=== PATIENT | female | born 1955 | race Caucasian/White ===

== ENCOUNTER 2017-08-20 13:39 | Emergency (ER) | payer OTHER, SELFPAY ==
[2017-08-20 14:46] VITALS: BP 154/70; PULSE 68; RESP 20; TEMP 36.2; O2SAT 97; BMI 26.2
[2017-08-20 14:55] LABS: UTC Strep Screen (Rapid) Negative (Negative)
--- NOTE | 2017-08-20 15:33 | HMH.EDUTC ---
[facility] [place] Clinical Impression: Acute pharyngitis Qualifiers: Pharyngitis/tonsillitis etiology: unspecified etiology Qualified Code(s): J02.9 - Acute pharyngitis, unspecified Eustachian tube dysfunction Qualifiers: Laterality: bilateral Qualified Code(s): H69.83 - Other specified disorders of Eustachian tube, bilateral Disposition: Home, Self-Care Condition on Discharge: Good Instructions: DI for Viral Pharyngitis, DI for Eustachian Tube Dysfunction-Adult Additional Instructions: * No sign of bacterial infection. Likely viral. Virus can take 7-14 days to run their course * Monitor Temp. Fever would not be expected so if occurs, follow up * Encourage fluids, water, gatorade, powerade, pedialyte if infant/toddler/child * warm salt water gargles * warm fluids * sore throat lozenges * sleep elevated * humidifier/vaporizer * start flonase 2 sprays each nostril daily but may take 2-3 days to notice improvement with it. * start an antihistamine like claritin, zyrtec, juju. You could do one with a decongestant in it if you would like. Just ask the pharmacist for it because behind the counter. As we discussed, the decongestant can elevate BP so be sure to stop medication if so and follow up. * * Your throat swab was sent for culture. Those results are typically sent to your primary care. Be sure to follow up in 2-3 days if no improvement so they can review those results and treat if necessary. If you don't have primary care, I recommend you get one but in the mean time, you will have to return to a walk in clinic. * Follow up IMMEDIATELY for new or worsening symptoms OR no noticeable improvement over the next 48-72 hours. 911 for difficulty breathing or swallowing Prescriptions: Fluticasone Propionate [Flonase 50mcg nasal spray 16gm] 2 spr NS DAILY #1 bottle Time of Disposition: 15:45 Medical Decision Making Vital Signs: 08/20/17 14:46 Temperature 97.2 F L Temperature Source Temporal Artery Scan Pulse Rate [Right Brachial] 68 Respiratory Rate 20 Blood Pressure [Right Arm] 154/70 Blood Pressure Mean [Right Arm] 98 Blood Pressure Source [Right Arm] Automatic Cuff Blood Pressure Position [Right Arm] Sitting 02 Sat by Pulse Oximetry 97 Oxygen Delivery Method Room Air - Lab Data Lab results reviewed: Yes: I reviewed the patient's lab results. Lab Results 08/20/17 14:45: Strep Scn Rapid Clinic Negative Orders (Tests/Meds): ORDERS Category Date Time Status Strep Screen Confirmation Stat Micro 08/20/17 14:45 Received - Juan Inquiry Pt receiving controlled substance: No [facility] [facility] [place] - General Stated complaint: sore throat ear ache Time Seen by Provider: 08/20/17 15:33 Mode of Arrival: Ambulatory Source of Information: Patient Limitations: No Limitations Description of Symptoms (Recalled from Triage Doc. by RN): SORE THROAT, EARACHE HEENT Symptoms (Recalled from RN notes): Yes (SORE THROAT, EARACHE) Resp Symptoms (Recalled from RN notes): No Skin Symptoms (Recalled from RN notes): No MS Symptoms (Recalled from RN notes): No Functional Status (Recalled from RN notes): N/A - History of Present Illness Provider Complaint: c/o sore throat and bilateral ear pain since Wednesday. Ear pain intermittent, described as popping, craqcking, pressure. Sore throat entire throat, constant, raw and irritated. Throat lozenges not helping. Worse with clearing throat. No known sick contacts. No fever. - Related Data Previous Rx's Medication Instructions Recorded esomeprazole magnesium 20 mg 20 mg PO QDAY #14 cap 07/14/17 capsule,delayed release Fluticasone Propionate [Flonase 2 spr NS DAILY #1 bottle 08/20/17 50mcg nasal spray 16gm] Allergies Allergy/AdvReac Type Severity Reaction Status Date / Time No Known Allergies Allergy Verified 08/20/17 14:50 - Worker's Comp Is this a Worker's Comp case?: No [facility] History I have reviewed the patient's past medical history: Yes Medical Histo
--- NOTE | 2017-08-20 15:42 | ED_ITS ---
[facility] [place] Clinical Impression: Acute pharyngitis Qualifiers: Pharyngitis/tonsillitis etiology: unspecified etiology Qualified Code(s): J02.9 - Acute pharyngitis, unspecified Eustachian tube dysfunction Qualifiers: Laterality: bilateral Qualified Code(s): H69.83 - Other specified disorders of Eustachian tube, bilateral Disposition: Home, Self-Care Condition on Discharge: Good Instructions: DI for Viral Pharyngitis, DI for Eustachian Tube Dysfunction- Adult Additional Instructions: * No sign of bacterial infection. Likely viral. Virus can take 7-14 days to run their course * Monitor Temp. Fever would not be expected so if occurs, follow up * Encourage fluids, water, gatorade, powerade, pedialyte if infant/toddler/ child * warm salt water gargles * warm fluids * sore throat lozenges * sleep elevated * humidifier/vaporizer * start flonase 2 sprays each nostril daily but may take 2-3 days to notice improvement with it. * start an antihistamine like claritin, zyrtec, juju. You could do one with a decongestant in it if you would like. Just ask the pharmacist for it because behind the counter. As we discussed, the decongestant can elevate BP so be sure to stop medication if so and follow up. * * Your throat swab was sent for culture. Those results are typically sent to your primary care. Be sure to follow up in 2-3 days if no improvement so they can review those results and treat if necessary. If you don't have primary care , I recommend you get one but in the mean time, you will have to return to a walk in clinic. * Follow up IMMEDIATELY for new or worsening symptoms OR no noticeable improvement over the next 48-72 hours. 911 for difficulty breathing or swallowing Prescriptions: Fluticasone Propionate [Flonase 50mcg nasal spray 16gm] 2 spr NS DAILY #1 bottle Time of Disposition: 15:45 Medical Decision Making Vital Signs: 08/20/17 14:46 Temperature 97.2 F L Temperature Source Temporal Artery Scan Pulse Rate [Right Brachial] 68 Respiratory Rate 20 Blood Pressure [Right Arm] 154/70 Blood Pressure Mean [Right Arm] 98 Blood Pressure Source [Right Arm] Automatic Cuff Blood Pressure Position [Right Arm] Sitting 02 Sat by Pulse Oximetry 97 Oxygen Delivery Method Room Air - Lab Data Lab results reviewed: Yes: I reviewed the patient's lab results. Lab Results 08/20/17 14:45: Strep Scn Rapid Clinic Negative Orders (Tests/Meds): ORDERS Category Date Time Status Strep Screen Confirmation Stat Micro 08/20/17 14:45 Received - Juan Inquiry Pt receiving controlled substance: No [facility] [place] HPI - General Stated complaint: sore throat ear ache Time Seen by Provider: 08/20/17 15:33 Mode of Arrival: Ambulatory Source of Information: Patient Limitations: No Limitations Description of Symptoms (Recalled from Triage Doc. by RN): SORE THROAT, EARACHE HEENT Symptoms (Recalled from RN notes): Yes (SORE THROAT, EARACHE) Resp Symptoms (Recalled from RN notes): No Skin Symptoms (Recalled from RN notes): No MS Symptoms (Recalled from RN notes): No Functional Status (Recalled from RN notes): N/A - History of Present Illness Provider Complaint: c/o sore throat and bilateral ear pain since Wednesday. Ear pain intermittent, described as popping, craqcking, pressure. Sore throat entire throat, constant, raw and irritated. Throat lozenges not helping. Worse with clearing throat. No known sick contacts. No fever.
[2017-08-20 15:57] VITALS: BP 154/70; PULSE 68; RESP 20; TEMP 36.2; O2SAT 97
== END 2017-08-20 15:58 | disposition home or self-care (01) ==
PROVIDERS: Emergency Provider Nurse Practitioner Family; Family Provider Emergency Medicine
DX: J02.9 Acute pharyngitis, unspecified (principal); H69.83 Other specified disorders of Eustachian tube, bilateral; I10 Essential (primary) hypertension; E03.9 Hypothyroidism, unspecified
CPT/HCPCS: 87880; 99202

== ENCOUNTER → 2018-03-21 14:07 | Outpatient (REF) | payer OTHER, SELFPAY ==
[2018-03-21 18:18] LABS: Basophils # 0.1 K/mm3 (0-0.2); Eosinophils # 0.2 K/mm3 (0.0-0.4); Hematocrit 40.2 % (37.0-47.0); Hemoglobin 13.8 g/dL (12.2-16.2); Lymphocytes # 2.1 K/mm3 (0.7-4.5); Lymphocytes % 35.1 K/mm3 (10-50); Mean Corpuscular HGB Conc 34.4 g/dL (31.8-35.4); Mean Corpuscular Hemoglobin 34.1 pg (27.0-31.2); Mean Corpuscular Volume 99.3 fl (81-99); Mean Platelet Volume 7.9 fl (7.4-10.4); Monocytes # 0.3 K/mm3 (0.1-1.0); Monocytes % 4.2 % (1.7-9.3); Neutrophils # 3.3 K/mm3 (1.8-7.8); Neutrophils % 55.7 % (37.0-80.0); Platelet Count 289 K/mm3 (142-424); Red Blood Count 4.05 M/mm3 (4.20-5.40); White Blood Count 5.9 K/mm3 (4.8-10.8)
[2018-03-21 18:37] LABS: Alanine Aminotransferase 15 U/L (12-78); Albumin Level 4.1 gm/dL (3.4-5.0); Albumin/Globulin Ratio 1.3 (1.1-1.8); Alkaline Phosphatase 77 U/L (46-116); Anion Gap 13.2 mEq/L (5-15); Bilirubin,Total 0.3 mg/dL (0.2-1.0); Blood Urea Nitrogen 15 mg/dL (7-18); Calcium 8.6 mg/dL (8.5-10.1); Carbon Dioxide 26 mmol/L (21.0-32.0); Chloride 108 mmol/L (98-107); Cholesterol 242 mg/dL (140-200); Creatinine,Serum 0.57 mg/dL (0.55-1.02); Estimated Glomerular Filt Rate 108 ml/min (>60); GFR (African American) 130 ML/MIN (>60); Globulin 3.2 gm/dl (1.3-3.2); Glucose 98 mg/dL (74-106); HDL Cholesterol 48 mg/dL (29-89); LDL Cholesterol 131 mg/dL (0-130); Sodium 143 mmol/L (136-145); Thyroid Stimulating Hormone 0.88 uIU/ml (0.358-3.740); Total Protein,Serum 7.3 gm/dL (6.4-8.2); Triglycerides 313 mg/dL (30-200); VLDL Cholesterol 63 mg/dL (0-40)
[2018-03-21 18:41] LABS: Potassium 4.2 mmoL/L (3.5-5.1)
[2018-03-21 18:42] LABS: Aspartate Amino Transferase 12 U/L (15-37)
[2018-03-25 18:26] LABS: Vitamin D 25 Hydroxy 27.6 ng/mL (30.0-100.0)
== END ==
LOC: LAB 14:07
PROVIDERS: PCP Nurse Practitioner Family; Visit Provider Nurse Practitioner Family
DX: R53.83 Other fatigue (principal); E03.9 Hypothyroidism, unspecified
CPT/HCPCS: 80053; 80061; 82652; 84443; 85025

== ENCOUNTER → 2018-04-12 10:07 | Outpatient (CLI) | payer OTHER, SELFPAY | PROVIDERS: PCP Nurse Practitioner Family; Visit Provider Surgery | DX: L72.9 Follicular cyst of the skin and subcutaneous tissue, unspecified (principal) | CPT/HCPCS: 93005 ==

== ENCOUNTER → 2018-05-24 19:55 | Outpatient (CLI) | payer OTHER, SELFPAY | PROVIDERS: Visit Provider Nurse Practitioner Family | DX: R31.9 Hematuria, unspecified (principal) | CPT/HCPCS: 87086; 87088; 87186 ==

== ENCOUNTER → 2018-06-20 16:44 | Outpatient (CLI) | payer OTHER, SELFPAY ==
--- NOTE | 2018-06-20 16:46 | MM_ITS ---
MM Dig screening mamm BI w/CAD ORDERING PHYSICIAN : Rico Kim MD PATIENT AGE: 62 years GENDER: Female COMPARISON: June 20172015, December INDICATION: ITS.REASON: Routine Screening Mammogram. No hormones. No new complaints. Previous excisional biopsy left breast. Biopsy scar superior areolar region 12:00 noted on history sheet. Family history. Unremarkable TECHNIQUE: Standard CC and MLO images were obtained. R2 CAD reviewed. FINDINGS: Mild to moderate residual fibroglandular elements. Throughout both breast. Prior films are helpful and supportive stable pattern CAD computer review highlights no areas of concern either RIGHT BREAST:. No new areas of significant concern. Minimal area of density at the lateral retroareolar region is unchanged since multiple prior studies dating back to 2013, 2011.,/2015 And can be followed. . LEFT BREAST:No simply new areas of concern. Unremarkable. IMPRESSION: Overall Stable mammogram, with no significant new areas of concern Bilateral follow-up one year recommended . BI-RADS Category: 2 Benign Finding(s) RECOMMENDED FOLLOW-UP: 1YR 1 YEAR FOLLOW-UP (A letter has been sent to the patient regarding results of the study.)
== END ==
PROVIDERS: PCP Emergency Medicine; Visit Provider Nurse Practitioner Obstetrics & Gynecology
DX: Z12.31 Encounter for screening mammogram for malignant neoplasm of breast (principal)
CPT/HCPCS: 77067

== ENCOUNTER → 2018-08-18 15:48 | Outpatient (CLI) | payer OTHER, SELFPAY ==
--- NOTE | 2018-08-18 15:56 | XR_ITS ---
XR KUB HISTORY: Right lower quadrant pain ITS.REASON: pain ORDERING PHYSICIAN: Ashli Serra PATIENT AGE: 62 years COMPARISON: None FINDINGS: Nonspecific nonobstructive bowel gas pattern. There is a calcific density to the right of L5 representing a phlebolith as noted on previous CT scan. Prominent sacroiliac ligament calcifications are noted. Mild osteoarthritic changes are present in the hips and the SI joints. IMPRESSION: No acute finding
== END ==
PROVIDERS: PCP Nurse Practitioner Family; Visit Provider Nurse Practitioner Family
DX: R10.9 Unspecified abdominal pain (principal)
CPT/HCPCS: 74018; 87086

== ENCOUNTER → 2018-08-26 14:15 | Outpatient (CLI) | payer OTHER, SELFPAY ==
--- NOTE | 2018-08-26 14:16 | CT_ITS ---
CT abdomen pelvis wo con CLINICAL INDICATION: Right flank pain, abdominal pain, mid abdominal pain ITS.REASON: r/o kidney stone ORDERING PHYSICIAN: Ashli Serra PATIENT AGE: 62 years COMPARISON: 08/08/2018 , 03/23/2014 , TECHNIQUE: Axial images obtained with sagittal and coronal reformats. All CT scans at the facility use one or more dose reduction, viz: automated exposure control, ma/kV adjustment per patient size (including targeted exams where dose is matched to indication, i.e. head), or iterative reconstruction technique. PROCEDURE: Oral Contrast: None IV Contrast: None . FINDINGS:, Lung bases are clear. The liver, spleen, adrenal glands, pancreas, and kidneys have an unremarkable unenhanced appearance. No renal or ureteral calculi. There are gallstones noted. No intestinal obstruction or free air. No evidence of appendicitis. Scattered diverticula and no evidence of diverticulitis. There is diverticula within the ascending colon region. There is a right midabdominal calcific density in the paraspinal region at the L4-L5 level and represents a phlebolith similar to the previous exam. Prior hysterectomy. No acute bony findings. IMPRESSION: 1. No acute abdominal or pelvic findings. No renal or ureteral calculi. 2. Cholelithiasis 3. Colonic diverticulosis. No evidence of diverticulitis
== END ==
PROVIDERS: PCP Nurse Practitioner Family; Visit Provider Nurse Practitioner Family
DX: R10.9 Unspecified abdominal pain (principal)
CPT/HCPCS: 74176

== ENCOUNTER → 2018-09-14 08:23 | Outpatient (CLI) | payer OTHER, SELFPAY ==
--- NOTE | 2018-09-14 08:24 | US_ITS ---
US gallbladder HISTORY: Nausea with right upper quadrant pain and back pain ITS.REASON: gallstones ORDERING PHYSICIAN: Brayan Stephens MD PATIENT AGE: 62 years Comparison: None FINDINGS: PANCREAS: Unremarkable. No obvious mass or abnormal fluid collection. No ductal dilatation LIVER: No focal liver lesions demonstrated. Homogeneous echogenicity. No intrahepatic biliary ductal dilatation evident RIGHT KIDNEY: Unremarkable. Normal size and echogenicity. No hydronephrosis GALLBLADDER: There are gallstones present. No gallbladder wall thickening, pericholecystic fluid, or biliary dilatation is evident. Common bile but measures 5 mm. IMPRESSION: Cholelithiasis
== END ==
PROVIDERS: PCP Emergency Medicine; Visit Provider Surgery
DX: K82.9 Disease of gallbladder, unspecified (principal)
CPT/HCPCS: 76705

== ENCOUNTER → 2018-09-26 14:59 | Outpatient (CLI) | payer OTHER, SELFPAY ==
[2018-09-26 15:27] LABS: Basophils # 0.1 K/mm3 (0-0.2); Eosinophils # 0.2 K/mm3 (0.0-0.4); Eosinophils % 3.2 % (0.1-12.0); Hematocrit 39.5 % (37.0-47.0); Hemoglobin 14.1 g/dL (12.2-16.2); Lymphocytes # 2.6 K/mm3 (0.7-4.5); Lymphocytes % 37.1 % (10-50); Mean Corpuscular HGB Conc 35.7 g/dL (31.8-35.4); Mean Corpuscular Hemoglobin 33.9 pg (27.0-31.2); Mean Platelet Volume 7.1 fl (7.4-10.4); Monocytes # 0.3 K/mm3 (0.1-1.0); Monocytes % 4.6 % (1.7-9.3); Neutrophils # 3.7 K/mm3 (1.8-7.8); Neutrophils % 54.1 % (37.0-80.0); Platelet Count 302 K/mm3 (142-424); Red Blood Count 4.16 M/mm3 (4.20-5.40); Red Cell Distribution Width 12.8 % (11.5-17.5); White Blood Count 6.9 K/mm3 (4.8-10.8)
[2018-09-26 17:26] LABS: Alanine Aminotransferase 16 U/L (12-78); Albumin Level 4.2 gm/dL (3.4-5.0); Albumin/Globulin Ratio 1.3 (1.1-1.8); Alkaline Phosphatase 70 U/L (46-116); Anion Gap 14.2 mEq/L (5-15); Aspartate Amino Transferase 15 U/L (15-37); Bilirubin,Total 0.4 mg/dL (0.2-1.0); Blood Urea Nitrogen 17 mg/dL (7-18); Calcium 9.2 mg/dL (8.5-10.1); Carbon Dioxide 28 mmol/L (21.0-32.0); Chloride 103 mmol/L (98-107); Creatinine,Serum 0.62 mg/dL (0.55-1.02); Estimated Glomerular Filt Rate 98 ml/min (>60); GFR (African American) 118 ML/MIN (>60); Globulin 3.2 gm/dl (1.3-3.2); Glucose 102 mg/dL (74-106); Potassium 4.2 mmoL/L (3.5-5.1); Sodium 141 mmol/L (136-145); Total Protein,Serum 7.4 gm/dL (6.4-8.2)
== END ==
PROVIDERS: Visit Provider Surgery
DX: K80.20 Calculus of gallbladder without cholecystitis without obstruction (principal)
CPT/HCPCS: 36415; 80053; 85025

== ENCOUNTER 2018-12-06 08:37 | Day surgery (SDC) | payer OTHER, SELFPAY ==
[2018-12-05 12:51] VITALS: BMI 27.8
[2018-12-06] VITALS (8 sets, daily range): BP systolic 112–142; BP diastolic 69–82; PULSE 62–82; RESP 16–18; TEMP 36.4–37; O2SAT 94–99
--- NOTE | 2018-12-06 09:31 | HMH.ANESCL ---
[facility] Anesthesia Checklist - Patient Identification Patient Identification: Arm Band, Verbal (Name & ) - Structural Data Admitted From: Home Planned Operative Procedure/s: EGD Consent for Planned Operative Procedure(s) Verified: Yes Verified Documents: Surgical Consent, History and Physical - NPO Status Verified Time NPO: 00:00 - Additional verifications Patient : No Anesthesia Reactions: No - Airway Assessment C-Spine Mobility Assessed: Yes TMJ Mobility Assessed: Yes Dentition: Poor Dentition (Missing teeth) - Neurological Assessment Level of Consciousness: Awake, Alert, Appropriate, Follows Commands Hx Seizures: No Numbness or tingling in extremities: No - Anesthesia Plan Anesthesia Risk discussed: Yes Anesthesia Plan: Verified ASA Class: II Anesthesia Type: MAC [facility] History I have reviewed the patient's past medical history: Yes Medical History: Reports:: Depression, Gastroesophageal Reflux Disease(GERD), Hyperlipidemia, Hypertension Denies:: Cancer, Diabetes Mellitus Type 1, Diabetes Mellitus Type 2, Internal Pacemaker, Lung Disease, MRSA, Seizures *Have you ever received a pneumonia vaccine?: No *Have you received a flu vaccine this season?: Yes Other Medical History: Reports: Hypothyroidism. Denies: Blood Transfusion Reaction Laterality Cases: Other Surgeries: Yes: Cholecystectomy, Hysterectomy-Total, Other. No: Pacemaker Amputation: No Fractures: No - *Social History Smoking Status: Never smoker Alcohol Intake: never Alcohol Intake Frequency:: holidays/special occasions only Substance Use Type: denies use *Occupational Status:: employed Housing: house Household Members: none *Travel in the last 8 weeks: None (NA) - Psychiatric History Pschychiatric History:: Reports:: Depression Family Hx:: Diabetes, Kidney Disease
--- NOTE | 2018-12-06 09:56 | HMH.SCOPE ---
- Procedure: Date: 12/06/18 Procedure Performed:: Esophagogastroduodenoscopy with biopsies Indications:: Patient is a 62-year-old white female. I had seen her for symptomatic gallstones and performed laparoscopic cholecystectomy on her relatively recently. When she returned for postoperative evaluation she stated that her abdominal pain had improved but she was having symptoms consistent with dyspepsia and heartburn. At that time I started her on ranitidine. She is been taking this twice daily. She states that this is given her minor relief. She describes ongoing symptoms of heartburn and dyspepsia with some minor dysphagia type symptoms. Plan was made for upper endoscopy. Performing Provider:: Brayan Stephens MD Referring Provider:: None Sedation:: Propofol Procedure:: Consent was obtained and patient was taken to endoscopy procedure room. She was positioned in a lateral decubitus position. Adequate intravenous sedation was achieved. Olympus endoscope was inserted via the oropharynx and advanced to the esophagus. Esophagus showed findings of mild chronic nonerosive esophagitis. At the gastroesophageal junction there was possibly evidence of some Latif's. Stomach was cannulated and insufflated. Retroflexion revealed no evidence of any appreciable hiatal hernia. Within the gastric lumen there is diffuse areas of punctate erosions. CLOtest was obtained for H. pylori. Pylorus was traversed. There is mild nonerosive duodenitis and biopsies were obtained. Several biopsies were obtained within the gastric lumen. Biopsies were obtained at the gastroesophageal junction to rule out Latif's. Several distal esophageal biopsies were obtained. Findings:: Punctate erosive gastritis Mild nonerosive duodenitis Recommendations:: Plan to follow-up on histopathology. Treat H. pylori if positive. If positive for metaplasia will need ongoing surveillance and regardless likely will need proton pump inhibitors. Complications:: None Estimated blood obtained (mL): 3
== END 2018-12-06 11:10 | disposition home or self-care (01) ==
LOC: OUTP 08:39
PROVIDERS: PCP Emergency Medicine; Visit Provider Surgery
PROC: 0DJ08ZZ Inspection of Upper Intestinal Tract, Via Natural or Artificial Opening Endoscopic (ICD-10-PCS; CPT 43235; principal; 2018-12-06 09:30)
DX: K20.8 Other esophagitis (principal); K25.5 Chronic or unspecified gastric ulcer with perforation; K29.80 Duodenitis without bleeding
CPT/HCPCS: 43239; 87339

== ENCOUNTER → 2019-03-14 17:56 | Outpatient (CLI) | payer OTHER, SELFPAY ==
[2019-03-14 18:53] LABS: Chol/HDL Ratio 4.6 (1-3.5); Cholesterol 227 mg/dL (140-200); HDL Cholesterol 49 mg/dL (29-89); LDL Cholesterol 116 mg/dL (0-130); T4 (Thyroxine) 8.8 ug/dl (4.7-13.3); Thyroid Stimulating Hormone 2.71 uIU/ml (0.358-3.740); Triglycerides 310 mg/dL (30-200); VLDL Cholesterol 62 mg/dL (0-40)
[2019-03-16 07:20] LABS: Vitamin D 25 Hydroxy 24.2 ng/mL (30.0-100.0)
== END ==
PROVIDERS: Visit Provider Nurse Practitioner Family
DX: E07.9 Disorder of thyroid, unspecified (principal); I10 Essential (primary) hypertension
CPT/HCPCS: 80061; 82652; 84436; 84443

== ENCOUNTER → 2019-06-09 16:39 | Outpatient (CLI) | payer OTHER, SELFPAY | PROVIDERS: Visit Provider Nurse Practitioner Family | DX: N39.0 Urinary tract infection, site not specified (principal) | CPT/HCPCS: 87086 ==

== ENCOUNTER → 2019-06-26 15:49 | Outpatient (CLI) | payer OTHER, SELFPAY ==
--- NOTE | 2019-06-26 15:49 | MM_ITS ---
PROCEDURE: MM DIG SCREENING MAMM BI W/CAD Patient Age:63Y CLINICAL INDICATION: Routine screening mammogram 63-year-old. No hormones but no new complaints. Noncontributory family history Prior excisional biopsy left breast scar at superior periareolar region Family history. Unremarkable COMPARISON: [facility] DIGITAL MAMM-SCREEN BILATERAL from 12/25/2010 [facility] DIGITAL MAMM-SCREEN BILATERAL from 02/18/2012 [facility] DIG MAMM-SCREEN CHUCKIE from 11/06/2013 [facility] DIG MAMM-SCREEN CHUCKIE from 12/04/2014 [facility] DIG MAMM-SCREEN CHUCKIE from 06/15/2016 [facility] DIG MAMM-SCREEN CHUCKIE W/CAD from 06/21/2017 [facility] MM Dig screening mamm BI w/CAD from 06/20/2018 TECHNIQUE: Standard CC and MLO images were obtained. R2 CAD reviewed. Additional CC view right breast included FINDINGS: [id number] residual fibroglandular elements bilaterally. Multiple prior studies are helpful in supporting stability with no new areas of significant concern either breast. No dominant or suspicious mass, no suspicious calcifications either breast. Overall stable architecture, with stable minor asymmetry Right breast: No new areas concern Stable minor area of density lateral superior retroareolar region again evident Left breast with no new findings Bilateral follow-up 1 year recommended IMPRESSION: stable bilateral mammogram. No significant new areas Of concern Bilateral follow-up 1 year [id number] density breast BI-RAD Category: 2 Benign Finding(s) FOLLOW-UP: 1YR 1 Year Follow-up additional axillary CC view on right and (A letter has been sent to the patient regarding results of the study.) Dictated by: Thom Carmichael MD 06/29/2019 08:55 Electronically signed by Thom Carmichael MD in [place] 06/29/2019 08:55
== END ==
PROVIDERS: PCP Emergency Medicine; Visit Provider Emergency Medicine
DX: Z12.31 Encounter for screening mammogram for malignant neoplasm of breast (principal)
CPT/HCPCS: 77067

== ENCOUNTER → 2020-03-12 17:11 | Outpatient (CLI) | payer OTHER, SELFPAY ==
[2020-03-12 17:58] LABS: Basophils # 0.1 K/mm3 (0-0.2); Eosinophils # 0.1 K/mm3 (0.0-0.4); Eosinophils % 2.2 % (0.1-12.0); Hematocrit 37.6 % (37.0-47.0); Hemoglobin 14.1 g/dL (12.2-16.2); Lymphocytes # 1.9 K/mm3 (0.7-4.5); Lymphocytes % 31.1 % (10-50); Mean Corpuscular HGB Conc 37.5 g/dL (31.8-35.4); Mean Corpuscular Hemoglobin 36.1 pg (27.0-31.2); Mean Corpuscular Volume 96.2 fl (81-99); Mean Platelet Volume 8.1 fl (7.4-10.4); Monocytes # 0.3 K/mm3 (0.1-1.0); Monocytes % 4.1 % (1.7-9.3); Neutrophils # 3.8 K/mm3 (1.8-7.8); Neutrophils % 61.6 % (37.0-80.0); Platelet Count 289 K/mm3 (142-424); Red Blood Count 3.91 M/mm3 (4.20-5.40); Red Cell Distribution Width 13.4 % (11.5-17.5); White Blood Count 6.2 K/mm3 (4.8-10.8)
[2020-03-12 18:03] LABS: Alanine Aminotransferase 15 U/L (12-78); Albumin Level 4.4 g/dl (3.5-5.0); Albumin/Globulin Ratio 1.6 (1.1-1.8); Alkaline Phosphatase 79 U/L (38-126); Anion Gap 13.7 mEq/L (5-15); Aspartate Amino Transferase 29 U/L (14-36); Bilirubin,Total 0.4 mg/dl (0.2-1.3); Blood Urea Nitrogen 17 mg/dl (7-17); Calcium 9.5 mg/dl (8.4-10.2); Carbon Dioxide 27 mmol/L (22.0-30.0); Chloride 102 mmol/L (98-107); Chol/HDL Ratio 5.5 (1-3.5); Cholesterol 268 mg/dl (140-200); Estimated Glomerular Filt Rate 101 ml/min (>60); GFR (African American) 122 ML/MIN (>60); Globulin 2.8 g/dL (1.3-3.2); Glucose 120 mg/dl (74-100); HDL Cholesterol 49 mg/dl (40-60); Potassium 3.7 mmoL/L (3.5-5.1); Sodium 139 mmol/L (136-145); Total Protein,Serum 7.2 g/dl (6.3-8.2)
[2020-03-12 18:06] LABS: Triglycerides 433 mg/dl (30-150)
[2020-03-12 18:14] LABS: Direct LDL Cholesterol 163.98 mg/dL (100-129)
[2020-03-12 18:19] LABS: 25-OH Vitamin D, Total 32.9 ng/mL (30-100)
[2020-03-12 18:20] LABS: Free T4 (Free Thyroxine) 0.93 ng/dl (0.78-2.19)
[2020-03-12 18:34] LABS: Thyroid Stimulating Hormone 1.47 uIU/mL (0.465-4.68)
[2020-03-14 12:47] LABS: Hemoglobin A1C 5.3 % (4.0-6.0)
== END ==
PROVIDERS: Visit Provider Physician Assistant
DX: R53.83 Other fatigue (principal); E78.00 Pure hypercholesterolemia, unspecified; R39.9 Unspecified symptoms and signs involving the genitourinary system; R73.9 Hyperglycemia, unspecified
CPT/HCPCS: 80053; 80061; 82306; 83036; 84439; 84443; 85025; 87086

== ENCOUNTER → 2020-03-25 14:20 | Outpatient (CLI) | payer OTHER, SELFPAY ==
--- NOTE | 2020-03-25 14:25 | CT_ITS ---
PROCEDURE: CT ABDOMEN PELVIS WO CON CLINICAL INDICATION: RLQ PAIN Right lower quadrant pain, right flank pain COMPARISON: CT ABDPELWO CT abdomen pelvis wo con from 08/26/2018 TECHNIQUE: Axial images obtained with sagittal and coronal reformats. All CT scans at the facility use one or more dose reduction, viz: automated exposure control, ma/kV adjustment per patient size (including targeted exams where dose is matched to indication, i.e. head), or iterative reconstruction technique. FINDINGS: LOWER THORAX: No acute finding ABDOMEN & PELVIS: The liver, spleen, adrenal glands, pancreas, and kidneys have an unremarkable unenhanced appearance. There has been a prior cholecystectomy. No renal or ureteral calculi. There phleboliths along the right gonadal vein region. No evidence of appendicitis. There are scattered colonic diverticula throughout the colon. No evidence of appendicitis. No intestinal obstruction or free air. Prior hysterectomy. No acute bony findings. IMPRESSION: 1. No acute abdominal or pelvic findings. 2. No evidence of appendicitis or obstructing ureteral calculus. 3. Colonic diverticulosis without evidence of diverticulitis Dictated by: Neel Riojas MD 03/25/2020 15:16 Neel Riojas MD in [place] 03/25/2020 15:16
== END ==
PROVIDERS: PCP Emergency Medicine; Visit Provider Urology
DX: R10.31 Right lower quadrant pain (principal)
CPT/HCPCS: 74176

== ENCOUNTER 2020-04-01 08:18 | Day surgery (SDC) | payer OTHER, SELFPAY ==
[2020-04-01 08:46] VITALS: BP 181/78; PULSE 56; RESP 18; TEMP 36.3; O2SAT 97; BMI 28.1
[2020-04-01 10:18] LABS: Coronavirus 19 IgG Antibody Negative (Negative); Coronavirus 19 IgM Antibody Negative (Negative)
--- NOTE | 2020-04-01 11:38 | P.OP_ITS ---
Date of procedure: 04/01/20 Pre-op Diagnosis:: Microhematuria Post-op Diagnosis:: Microhematuria Procedure performed:: Cystoscopy Surgeon:: Trent Stephen MD Anesthesia: local Estimated blood loss (mL): 0 Clinical Note:: 64-year-old white female with microscopic hematuria. She has elected to proceed with hematuria work-up. CT scan showed no evidence for the microscopic hem aturia and she presents for cystoscopy. Operative findings:: Bladder showed no evidence of abnormalities. Operative note:: Patient taken to the treatment room after informed consent. On the stretcher she was placed in the frog-leg position and prepped and draped in the standard surgical fashion. 2% lidocaine placed into the urethra and allowed to stand for 5 minutes. After 5 minutes the flexible cystoscope introduced into the urethral meatus. Passed into the bladder without difficulty and the bladder examined in a systematic fashion. There is no evidence of mucosal abnormalities, stones, trabeculation or cellule formation. The ureteral orifices in their normal anatomic position and clear efflux of urine was noted from each. Bladder neck and urethra were within normal limits as well. The scope removed. Patient tolerated well and we discussed the negative findings. Condition: stable Disposition: same day Specimens:: None Complications:: None
[2020-04-01 13:32] VITALS: BP 151/73; PULSE 53; RESP 14; TEMP 36.1; O2SAT 99
== END 2020-04-01 10:55 | disposition home or self-care (01) ==
LOC: OUTP 08:19
PROVIDERS: PCP Emergency Medicine; Visit Provider Urology
PROC: (CPT 52000; principal; 2020-04-01 09:00)
DX: R31.29 Other microscopic hematuria (principal); Z79.899 Other long term (current) drug therapy; K21.9 Gastro-esophageal reflux disease without esophagitis; I10 Essential (primary) hypertension; E78.5 Hyperlipidemia, unspecified; F32.9 Major depressive disorder, single episode, unspecified; Z83.3 Family history of diabetes mellitus; Z84.1 Family history of disorders of kidney and ureter
CPT/HCPCS: 52000; 86328

== ENCOUNTER → 2020-07-01 08:58 | Outpatient (CLI) | payer OTHER, SELFPAY ==
--- NOTE | 2020-07-01 08:59 | MM_ITS ---
PROCEDURE: MM DIG SCREENING MAMM BI W/CAD Referring Doctor: Rico Kim Patient Age:64Y CLINICAL INDICATION: Routine Screening Mammogram The the the COMPARISON: MG [facility] DIGITAL MAMM-SCREEN BILATERAL from 02/18/2012 MG [facility] DIG MAMM-SCREEN CHUCKIE from 11/06/2013 MG [facility] DIG MAMM-SCREEN CHUCKIE from 12/04/2014 MG [facility] DIG MAMM-SCREEN CHUCKIE from 06/15/2016 MG [facility] DIG MAMM-SCREEN CHUCKIE W/CAD from 06/21/2017 [facility] MM Dig screening mamm BI w/CAD from 06/20/2018 MG MM DIG SCREENING MAMM BI W/CAD from 06/26/2019 TECHNIQUE: Standard CC and MLO images were obtained. R2 CAD reviewed. Bilateral digital breast tomosynthesis included. Additional axillary CC view right breast FINDINGS: Moderate residual fibroglandular elements with stable minimal asymmetry. Stable architecture bilaterally with no new dominant nor suspicious mass; no new suspicious calcifications bilateral follow-up 1 year recommended Left breast, stable. Areas of minor asymmetry on today's CC view features are unchanged since studies dating back to 2014 the head IMPRESSION: Stable bilateral mammogram. No new areas of concern . Bilateral follow-up 1 year recommended BI-RAD Category: 1 Negative FOLLOW-UP: 1YR 1 Year Follow-up (A letter has been sent to the patient regarding results of the study.) Dictated by: Thom Carmichael MD 07/03/2020 07:25 Thom Carmichael MD in [place] 07/03/2020 07:25
== END ==
PROVIDERS: PCP Emergency Medicine; Visit Provider Nurse Practitioner Obstetrics & Gynecology
DX: Z12.31 Encounter for screening mammogram for malignant neoplasm of breast (principal)
CPT/HCPCS: 77063; 77067

== ENCOUNTER → 2020-12-16 15:59 | Outpatient (CLI) | payer OTHER, SELFPAY ==
--- NOTE | 2020-12-16 16:03 | XR_ITS ---
PROCEDURE: XR FOOT RT MIN 3V CLINICAL INDICATION: right knee pain COMPARISON: No exams were available for comparison FINDINGS: There are moderate degenerative changes of the medial joint compartment and patellofemoral joint with mild degenerative change of the lateral joint compartment. Small joint effusion. No acute fracture or dislocation. Some soft tissue swelling is present. 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 No acute fracture or dislocation. Dictated by: Boni May 12/17/2020 10:36 Boni May in [place] 12/17/2020 10:36
== END ==
PROVIDERS: PCP Emergency Medicine; Visit Provider Physician Assistant
DX: M25.561 Pain in right knee (principal)
CPT/HCPCS: 73630

== ENCOUNTER 2020-12-23 16:47 | Outpatient (RCR) | payer OTHER, SELFPAY ==
--- NOTE | 2020-12-23 17:36 | HMH.PTOPEV ---
PT Outpatient Evaluation Rehab PT Outpatient Evaluation Start: 12/23/20 17:02 Freq: Status: Active Protocol: Document 12/23/20 17:28 SILVIACARLOS (Rec: 12/23/20 17:36 ERROL [id number]) Electronically Signed By Gonsalo Jenkins, PT 12/23/20 17:28 Outpatient Therapy Subjective History Subjective History This is the initial Physical Therapy evaluation for Noelle Boyer. Pt is a 65 y/ o female referred to PT for c/ o R knee pain. Pt reports she has knee pain for a while , and states her knee gives out on her. When asked for clarification pt reports ~1 month of pain w/ insidious onset. Pt reports she will get intermittant sharp stabbing pain in knee causing it to buckle. Pt reports only pain when she is up on it Chief Complaint Pain,Gives out/Unstable Symptom Type Sharp Symptoms Relieved By Rest/Positioning,Heat Symptoms Aggravated By Physical Activity,Twisting, Walking Prior Functional Limitations None Current Functional Limitations Housework,Standing,Squatting, Recreation Activity,Walking, Stairs Symptom Description Intermittent Level of pain today (0-10) 0 Pain scale - at its best (0-10) 0 Pain scale - at its worst (0-10) 10 Hip/Knee Eval Gait Observation General Gait Pattern Observation Antalgic Gait Assistive Device Assistive Devices None / NA Palpation Tenderness right Knee Palpation Finding Tenderness,Trigger Point, Muscle Guarding MMT Knee Strength Reason Not Measured WFL Knee Extension Strength Grade 5 Normal Knee Flexion Strength Grade 5 Normal ROM bilateral Hip ROM Reason Not Measured Within Functional Limits Knee ROM Reason Not Measured Within Functional Limits Special Tests Knee Apprehension Test Negative Right Knee Apley Compression Test Negative Right Knee Anterior Drawer Test Negative Right Knee Medial-Lateral Grind Test Negative Right Knee Anterior Dwight Test Negative Right Knee Valgus Stress Test Negative Right Knee Varus Stress Test Negative Right Knee Mich Test Negative Right Patella Apprehension Test Negative Right Patellar Grind Test Positive Right Patellar Compression Test Positive Right Outpatient Therapy Assessment Im
== END 2020-12-23 16:50 | disposition home or self-care (01) ==
LOC: PT 16:47
PROVIDERS: PCP Emergency Medicine; Visit Provider Physician Assistant
DX: M25.561 Pain in right knee (principal)
CPT/HCPCS: 97163

== ENCOUNTER → 2021-08-27 15:30 | Outpatient (CLI) | payer OTHER, SELFPAY ==
--- NOTE | 2021-08-27 15:30 | MM_ITS ---
PROCEDURE INFORMATION: Exam: MG Bilateral Screening 3D Mammography Exam date and time: 08/27/2021 3:30 PM Age: 65 years old Clinical indication: Screening mammogram TECHNIQUE: Imaging protocol: Bilateral Screening tomosynthesis and 2D mammography including computer-aided detection (CAD) when performed. COMPARISON: 1. MG MM DIG SCREENING MAMM BI W/CAD 07/01/2020 9:13 AM 2. MG MM DIG SCREENING MAMM BI W/CAD 06/26/2019 4:37 PM 3. MG SCBI MM Dig screening mamm BI w/CAD 06/20/2018 5:07 PM 4. MG DMSB DIG MAMM-SCREEN CHUCKIE W/CAD 06/21/2017 4:03 PM FINDINGS: MAMMOGRAPHY: Breast composition: There are scattered areas of fibroglandular density. Mass: None. Architectural distortion: No new or suspicious architectural distortion. Calcifications: No new or suspicious calcifications are present Asymmetric density: No new or suspicious asymmetric density is present Skin thickening: None. Axillary adenopathy: None. IMPRESSION: No mammographic evidence of malignancy. Recommend annual screening mammography unless otherwise clinically indicated. ASSESSMENT: BI-RADS category 1: Negative
== END ==
PROVIDERS: PCP Emergency Medicine; Visit Provider Nurse Practitioner Obstetrics & Gynecology
DX: Z12.31 Encounter for screening mammogram for malignant neoplasm of breast (principal)
CPT/HCPCS: 77063; 77067

== ENCOUNTER → 2021-09-09 06:50 | Outpatient (CLI) | payer OTHER, SELFPAY ==
[2021-09-09 07:57] LABS: Basophils # 0.1 K/mm3 (0-0.2); Basophils % 1.5 % (0.1-2.0); Eosinophils # 0.2 K/mm3 (0.0-0.4); Eosinophils % 3.3 % (0.1-12.0); Hematocrit 47.1 % (37.0-47.0); Hemoglobin 15.3 g/dL (12.2-16.2); Lymphocytes # 1.3 K/mm3 (0.7-4.5); Lymphocytes % 18.7 % (10-50); Mean Corpuscular HGB Conc 32.5 g/dL (31.8-35.4); Mean Corpuscular Hemoglobin 34.5 pg (27.0-31.2); Mean Corpuscular Volume 106.1 fl (81-99); Mean Platelet Volume 7.7 fl (7.4-10.4); Monocytes # 0.3 K/mm3 (0.1-1.0); Monocytes % 4.9 % (1.7-9.3); Neutrophils # 5.1 K/mm3 (1.8-7.8); Neutrophils % 71.6 % (37.0-80.0); Platelet Count 332 K/mm3 (142-424); Red Blood Count 4.44 M/mm3 (4.20-5.40); Red Cell Distribution Width 13.3 % (11.5-17.5); White Blood Count 7.1 K/mm3 (4.8-10.8)
[2021-09-09 08:19] LABS: Alanine Aminotransferase 19 U/L (12-78); Albumin/Globulin Ratio 1.8 (1.1-1.8); Alkaline Phosphatase 59 U/L (38-126); Anion Gap 17.3 mEq/L (5-15); Aspartate Amino Transferase 32 U/L (14-36); Bilirubin,Total 0.8 mg/dl (0.2-1.3); Blood Urea Nitrogen 18 mg/dl (7-17); Calcium 9.7 mg/dl (8.4-10.2); Carbon Dioxide 25 mmol/L (22.0-30.0); Chloride 101 mmol/L (98-107); Chol/HDL Ratio 4.5 (1-3.5); Cholesterol 248 mg/dl (140-200); Estimated Glomerular Filt Rate 72 ml/min (>60); GFR (African American) 87 ML/MIN (>60); Globulin 2.8 g/dL (1.3-3.2); Glucose 120 mg/dl (74-100); HDL Cholesterol 55 mg/dl (40-60); Potassium 5.3 mmoL/L (3.5-5.1); Sodium 138 mmol/L (136-145); Total Protein,Serum 7.8 g/dl (6.3-8.2); Triglycerides 172 mg/dl (30-150); VLDL Cholesterol 34 mg/dL (0-40)
[2021-09-09 08:29] LABS: Direct LDL Cholesterol 149.94 mg/dL (100-129)
[2021-09-09 08:34] LABS: 25-OH Vitamin D, Total 45.4 ng/mL (30-100)
[2021-09-09 08:35] LABS: T4 (Thyroxine) 8.1 ug/dl (5.53-11.0)
[2021-09-09 08:49] LABS: Thyroid Stimulating Hormone 8.39 uIU/mL (0.465-4.68)
== END ==
PROVIDERS: Visit Provider Nurse Practitioner Family
DX: I10 Essential (primary) hypertension (principal); E03.9 Hypothyroidism, unspecified; E78.5 Hyperlipidemia, unspecified; E66.3 Overweight; Z68.28 Body mass index [BMI] 28.0-28.9, adult; R79.1 Abnormal coagulation profile
CPT/HCPCS: 36415; 80053; 80061; 82306; 83036; 84436; 84443; 85025

== ENCOUNTER → 2022-03-02 06:04 | Outpatient (CLI) | payer OTHER, SELFPAY ==
[2022-03-02 18:58] LABS: Alanine Aminotransferase 24 U/L (12-78); Albumin Level 4.3 g/dl (3.5-5.0); Albumin/Globulin Ratio 1.6 (1.1-1.8); Alkaline Phosphatase 78 U/L (38-126); Anion Gap 13.6 mEq/L (5-15); Aspartate Amino Transferase 34 U/L (14-36); Bilirubin,Total 0.2 mg/dl (0.2-1.3); Blood Urea Nitrogen 20 mg/dl (7-17); Calcium 9.6 mg/dl (8.4-10.2); Carbon Dioxide 23 mmol/L (22.0-30.0); Chloride 107 mmol/L (98-107); Chol/HDL Ratio 5.8 (1-3.5); Cholesterol 255 mg/dl (140-200); Estimated Glomerular Filt Rate 72 ml/min (>60); GFR (African American) 87 ML/MIN (>60); Globulin 2.7 g/dL (1.3-3.2); Glucose 126 mg/dl (74-100); HDL Cholesterol 44 mg/dl (40-60); Potassium 3.6 mmoL/L (3.5-5.1); Sodium 140 mmol/L (136-145)
[2022-03-02 18:59] LABS: Basophils # 0.1 K/mm3 (0-0.2); Basophils % 0.8 % (0.1-2.0); Eosinophils # 0.2 K/mm3 (0.0-0.4); Eosinophils % 2.9 % (0.1-12.0); Hematocrit 39.4 % (37.0-47.0); Hemoglobin 13.2 g/dL (12.2-16.2); Lymphocytes # 1.7 K/mm3 (0.7-4.5); Lymphocytes % 26.1 % (10-50); Mean Corpuscular HGB Conc 33.6 g/dL (31.8-35.4); Mean Corpuscular Hemoglobin 33.1 pg (27.0-31.2); Mean Corpuscular Volume 98.6 fl (81-99); Mean Platelet Volume 7.9 fl (7.4-10.4); Monocytes # 0.4 K/mm3 (0.1-1.0); Monocytes % 6.1 % (1.7-9.3); Neutrophils # 4.1 K/mm3 (1.8-7.8); Neutrophils % 64.1 % (37.0-80.0); Platelet Count 299 K/mm3 (142-424); Red Cell Distribution Width 12.7 % (11.5-17.5); White Blood Count 6.4 K/mm3 (4.8-10.8)
[2022-03-02 19:19] LABS: 25-OH Vitamin D, Total 43.4 ng/mL (30-100)
[2022-03-02 19:22] LABS: Triglycerides 455 mg/dl (30-150)
[2022-03-02 19:28] LABS: Thyroid Stimulating Hormone 1.48 uIU/mL (0.465-4.68)
[2022-03-02 19:48] LABS: Vitamin B12 640 pg/mL (239-931)
[2022-03-03 12:57] LABS: Hemoglobin A1C 5.1 % (4.0-6.0)
[2022-03-04 09:47] LABS: Direct LDL Cholesterol 135 mg/dL (100-129)
== END ==
PROVIDERS: PCP Physician Assistant; Visit Provider Physician Assistant
DX: R73.09 Other abnormal glucose (principal); E03.9 Hypothyroidism, unspecified; R82.90 Unspecified abnormal findings in urine; R53.83 Other fatigue
CPT/HCPCS: 80053; 80061; 82306; 82607; 83036; 84443; 85025; 87086; 87088; 87186

== ENCOUNTER → 2022-03-20 07:39 | Outpatient (CLI) | payer OTHER, SELFPAY ==
--- NOTE | 2022-03-20 07:40 | FL_ITS ---
FINAL REPORT CLINICAL HISTORY: . dysphagia 1:23 fluoro time FINDINGS: ESOPHAGRAM HISTORY: . Dysphagia PROCEDURE: The patient ingested barium. Effervescent crystals were also administered. Spot and overhead films were obtained. Fluoroscopy time: 1 minute 23 seconds. 12 radiographs were obtained. FINDINGS: The esophagus is normal. There is a small sliding typehiatal hernia. There is minimalgastroesophageal reflux. Peristalsis is normal. IMPRESSION: Small sliding-type hiatal hernia with minimal gastroesophageal reflux. Films reviewed , interpreted and dictated by Dr. Fraser. Transcribed by Thom Myles PA-C. Reviewed, Interpreted and Dictated by Brayan Fraser III, MD Transcribed by RICHARD Plaza Authenticated and [facility] [place]
== END ==
PROVIDERS: PCP Physician Assistant; Visit Provider Otolaryngology
DX: R13.10 Dysphagia, unspecified (principal)
CPT/HCPCS: 74220

== ENCOUNTER → 2022-07-20 10:52 | Outpatient (CLI) | payer OTHER, SELFPAY ==
[2022-07-20 16:19] LABS: Basophils # 0.1 K/mm3 (0-0.2); Basophils % 1.2 % (0.1-2.0); Eosinophils # 0.3 K/mm3 (0.0-0.4); Eosinophils % 3.6 % (0.1-12.0); Hematocrit 43.7 % (37.0-47.0); Hemoglobin 15.1 g/dL (12.2-16.2); Lymphocytes % 27.4 % (10-50); Mean Corpuscular HGB Conc 34.4 g/dL (31.8-35.4); Mean Corpuscular Volume 98.7 fl (81-99); Mean Platelet Volume 8.8 fl (7.4-10.4); Monocytes # 0.4 K/mm3 (0.1-1.0); Monocytes % 5.8 % (1.7-9.3); Neutrophils # 4.5 K/mm3 (1.8-7.8); Platelet Count 392 K/mm3 (142-424); Red Blood Count 4.43 M/mm3 (4.20-5.40); White Blood Count 7.3 K/mm3 (4.8-10.8)
[2022-07-20 16:29] LABS: Alanine Aminotransferase 17 U/L (12-78); Albumin Level 4.5 g/dl (3.5-5.0); Albumin/Globulin Ratio 1.6 (1.1-1.8); Alkaline Phosphatase 70 U/L (38-126); Anion Gap 14.1 mEq/L (5-15); Aspartate Amino Transferase 27 U/L (14-36); Bilirubin,Total 0.5 mg/dl (0.2-1.3); Blood Urea Nitrogen 20 mg/dl (7-17); Calcium 9.2 mg/dl (8.4-10.2); Carbon Dioxide 27 mmol/L (22.0-30.0); Chloride 102 mmol/L (98-107); Chol/HDL Ratio 3.2 (1-3.5); Cholesterol 190 mg/dl (140-200); Estimated Glomerular Filt Rate 84 ml/min (>60); GFR (African American) 102 ML/MIN (>60); Globulin 2.8 g/dL (1.3-3.2); Glucose 108 mg/dl (74-100); HDL Cholesterol 60 mg/dl (40-60); Potassium 4.1 mmoL/L (3.5-5.1); Sodium 139 mmol/L (136-145); Total Protein,Serum 7.3 g/dl (6.3-8.2); Triglycerides 267 mg/dl (30-150); VLDL Cholesterol 53 mg/dL (0-40)
[2022-07-20 16:46] LABS: Direct LDL Cholesterol 83.58 mg/dL (100-129)
[2022-07-20 17:01] LABS: Thyroid Stimulating Hormone 1.75 uIU/mL (0.465-4.68)
[2022-07-20 17:19] LABS: Vitamin B12 526 pg/mL (239-931)
== END ==
PROVIDERS: PCP Physician Assistant; Visit Provider Physician Assistant
DX: E03.9 Hypothyroidism, unspecified (principal); N39.0 Urinary tract infection, site not specified
CPT/HCPCS: 80053; 80061; 82607; 84443; 85025; 87086

== ENCOUNTER → 2022-08-31 15:41 | Outpatient (CLI) | payer OTHER, SELFPAY ==
--- NOTE | 2022-08-31 15:41 | MM_ITS ---
PROCEDURE INFORMATION: Exam: MG Bilateral Screening 3D Mammography Exam date and time: 08/31/2022 3:38 PM Age: 66 years old Clinical indication: Screening examination. Maternal grandmother and maternal aunt had breast cancer. History of benign left excisional biopsy. TECHNIQUE: Imaging protocol: Bilateral Screening tomosynthesis and 2D mammography including computer-aided detection (CAD) when performed. COMPARISON: 1. MG MM DIG SCREENING MAMM BI W/CAD 08/27/2021 3:38 PM 2. MG MM DIG SCREENING MAMM BI W/CAD 07/01/2020 9:13 AM 3. MG MM DIG SCREENING MAMM BI W/CAD 06/26/2019 4:37 PM 4. MG SCBI MM Dig screening mamm BI w/CAD 06/20/2018 5:07 PM FINDINGS: MAMMOGRAPHY: Breast composition: There are scattered areas of fibroglandular density. Mass: None. Architectural distortion: None. Calcifications: No suspicious calcifications. Asymmetric density: None. Skin thickening: None. Axillary adenopathy: None. IMPRESSION: No mammographic evidence of malignancy. Annual screening is recommended unless otherwise clinically indicated. ASSESSMENT: BI-RADS Category 1: Negative
== END ==
PROVIDERS: PCP Physician Assistant; Visit Provider Emergency Medicine
DX: Z12.31 Encounter for screening mammogram for malignant neoplasm of breast (principal)
CPT/HCPCS: 77063; 77067

== ENCOUNTER → 2022-10-30 15:30 | Outpatient (CLI) | payer OTHER, SELFPAY ==
[2022-10-30 17:59] LABS: Basophils # 0.1 K/mm3 (0-0.2); Basophils % 1.2 % (0.1-2.0); Eosinophils # 0.3 K/mm3 (0.0-0.4); Eosinophils % 3.6 % (0.1-12.0); Hematocrit 42.2 % (37.0-47.0); Hemoglobin 14.2 g/dL (12.2-16.2); Lymphocytes # 2.4 K/mm3 (0.7-4.5); Lymphocytes % 32.9 % (10-50); Mean Corpuscular HGB Conc 33.7 g/dL (31.8-35.4); Mean Corpuscular Hemoglobin 33.6 pg (27.0-31.2); Mean Corpuscular Volume 99.5 fl (81-99); Mean Platelet Volume 8.2 fl (7.4-10.4); Monocytes # 0.5 K/mm3 (0.1-1.0); Monocytes % 7.1 % (1.7-9.3); Neutrophils % 55.1 % (37.0-80.0); Platelet Count 317 K/mm3 (142-424); Red Blood Count 4.25 M/mm3 (4.20-5.40); Red Cell Distribution Width 13.1 % (11.5-17.5); White Blood Count 7.3 K/mm3 (4.8-10.8)
[2022-10-30 18:19] LABS: Alanine Aminotransferase 17 U/L (12-78); Albumin Level 4.3 g/dl (3.5-5.0); Albumin/Globulin Ratio 1.6 (1.1-1.8); Alkaline Phosphatase 71 U/L (38-126); Anion Gap 10.4 mEq/L (5-15); Aspartate Amino Transferase 26 U/L (14-36); Bilirubin,Total 0.6 mg/dl (0.2-1.3); Blood Urea Nitrogen 25 mg/dl (7-17); Calcium 9.1 mg/dl (8.4-10.2); Carbon Dioxide 30 mmol/L (22.0-30.0); Chloride 103 mmol/L (98-107); Chol/HDL Ratio 3.9 (1-3.5); Cholesterol 169 mg/dl (140-200); Estimated Glomerular Filt Rate 72 ml/min (>60); GFR (African American) 87 ML/MIN (>60); Globulin 2.7 g/dL (1.3-3.2); Glucose 121 mg/dl (74-100); HDL Cholesterol 43 mg/dl (40-60); Potassium 4.4 mmoL/L (3.5-5.1); Sodium 139 mmol/L (136-145); Triglycerides 244 mg/dl (30-150); VLDL Cholesterol 49 mg/dL (0-40)
[2022-10-30 18:29] LABS: Direct LDL Cholesterol 99.67 mg/dL (100-129)
[2022-10-30 18:49] LABS: Hemoglobin A1C 5.1 % (4.0-6.0); Thyroid Stimulating Hormone 0.74 uIU/mL (0.465-4.68)
[2022-10-30 19:09] LABS: Vitamin B12 439 pg/mL (239-931)
== END ==
PROVIDERS: PCP Physician Assistant; Visit Provider Physician Assistant
DX: R53.83 Other fatigue (principal); E66.3 Overweight; Z68.27 Body mass index [BMI] 27.0-27.9, adult; Z79.899 Other long term (current) drug therapy
CPT/HCPCS: 80053; 80061; 82306; 82607; 83036; 84443; 85025

== ENCOUNTER → 2022-12-01 13:29 | Outpatient (CLI) | payer OTHER, SELFPAY | PROVIDERS: PCP Physician Assistant; Visit Provider Physician Assistant | DX: G47.33 Obstructive sleep apnea (adult) (pediatric) (principal); R06.83 Snoring | CPT/HCPCS: G0399 ==

== ENCOUNTER → 2023-03-10 12:00 | Outpatient (CLI) | payer OTHER, SELFPAY | PROVIDERS: PCP Physician Assistant; Visit Provider Nurse Practitioner Family | DX: N39.0 Urinary tract infection, site not specified (principal) | CPT/HCPCS: 87086 ==

== ENCOUNTER 2023-09-28 06:16 | Day surgery (SDC) | payer MEDICARE, SELFPAY ==
[2023-09-28] MEDS: TETRACAINE 0.5% OPTH SOL 15ML OP ×3 (06:40→06:55)
[2023-09-28 06:42] VITALS: BP 149/75; PULSE 59; RESP 18; TEMP 36.2; O2SAT 96
[2023-09-28] MEDS: PHENYLEPHRINE 2.5% OPHTH SOLN 2ML 0.0500000000000000028 ML OP ×3 (06:45→06:55)
[2023-09-28] MEDS: CYCLOPENTOLATE 2% OPHTH SOLN 2ML BOTTLE OP ×3 (06:45→06:55)
[2023-09-28] MEDS: SODIUM CHLORIDE 0.9% 10ML FLUSH SYRINGE 10 ML IV ×2 (06:50→08:05)
[2023-09-28 07:56] VITALS: BP 149/68; PULSE 50; RESP 19; O2SAT 96
[2023-09-28] MEDS: MIDAZOLAM 2MG/2ML VIAL 1 MG IV (07:56)
[2023-09-28 08:02] VITALS: BP 143/65; PULSE 48; RESP 19; O2SAT 96
[2023-09-28] MEDS: LIDOCAINE 1% PF 2ML AMPULE 2 ML IJ (08:05)
[2023-09-28 08:06] VITALS: BP 134/62; PULSE 48; RESP 19; O2SAT 96
[2023-09-28] MEDS: TIMOLOL 0.5% OPTH SOLN 5ML OP (08:06)
[2023-09-28] MEDS: TRI-MOXI 15MG/1MG/ML 1ML OPHTH VIAL 1 ML OP (08:07)
[2023-09-28 08:12] VITALS: BP 130/62; PULSE 47; RESP 19; O2SAT 98
[2023-09-28 08:15] VITALS: BP 132/75; PULSE 52; RESP 16; TEMP 36.6; O2SAT 100
== END 2023-09-28 08:30 | disposition home or self-care (01) ==
PROVIDERS: PCP Internal Medicine; Visit Provider Ophthalmology
PROC: (CPT 66984; principal; 2023-09-28 07:30)
DX: H25.811 Combined forms of age-related cataract, right eye (principal); H53.8 Other visual disturbances; H53.149 Visual discomfort, unspecified
CPT/HCPCS: 66984; V2632

== ENCOUNTER 2023-10-12 06:15 | Day surgery (SDC) | payer MEDICARE, SELFPAY ==
[2023-10-08 09:44] VITALS: BMI 30.1
[2023-10-12 06:40] VITALS: BP 136/91; PULSE 52; RESP 18; TEMP 36.2; O2SAT 96
[2023-10-12] MEDS: CYCLOPENTOLATE 2% OPHTH SOLN 2ML BOTTLE OP ×3 (06:45→06:55)
[2023-10-12] MEDS: TETRACAINE 0.5% OPTH SOL 15ML OP ×3 (06:45→06:55)
[2023-10-12] MEDS: PHENYLEPHRINE 2.5% OPHTH SOLN 2ML 0.0500000000000000028 ML OP ×3 (06:45→06:55)
[2023-10-12] MEDS: SODIUM CHLORIDE 0.9% 10ML FLUSH SYRINGE 10 ML IV (06:54)
[2023-10-12 07:51] VITALS: BP 133/64; PULSE 52; RESP 18; TEMP 36.7; O2SAT 97
[2023-10-12 07:56] VITALS: BP 135/71; PULSE 51; RESP 18; TEMP 36.7; O2SAT 97
[2023-10-12] MEDS: MIDAZOLAM 2MG/2ML VIAL 1 MG IV (07:58)
[2023-10-12] MEDS: LIDOCAINE 1% PF 2ML AMPULE 2 ML IJ (07:58)
[2023-10-12] MEDS: TRI-MOXI 15MG/1MG/ML 1ML OPHTH VIAL 1 ML OP (07:59)
[2023-10-12] MEDS: TIMOLOL 0.5% OPTH SOLN 5ML OP (08:00)
[2023-10-12 08:01] VITALS: PULSE 131; RESP 18; TEMP 36.7; O2SAT 96
[2023-10-12 08:06] VITALS: RESP 123; TEMP 36.6; O2SAT 96
--- NOTE | 2023-10-12 08:18 | P.PCN_ITS ---
[facility] Procedure Note Date: 10/12/23 Time: 08:00 Procedure Note:: Preoperative Diagnosis: Cataract combined NS Cortical Complex Left Eye Postop diagnosis: same Operation: Microscopic phacoemulsification with intraocular lens implant Left] Eye Specimen: None Blood Loss: None The patient was examined in the office with a complaint of poor vision in the left eye. The patient reports that this interferes with ADLs such as reading, watching TV and/or driving or the vision is like looking through a foggy haze and is very troubling. The patient was examined and found to have a visually significant cataract with best corrected vision of 20/400 by refraction and/or glare testing. Treatment options, risks and benefits were explained and the patient elected to have cataract surgery in an attempt to improve their vision. The patient had the eye anesthetized with topical tetracaine, the eye ways prepped and draped in the usual fashion for cataract surgery. A paracentesis and a temporal keratotomy were made. 0.2cc of 1% lidocaine PF was placed into the anterior chamber. And aqueous/viscoelastic exchange was done and a 360 degree capsulorexis was performed. Through hydrodissection and delineation with BSS on a cannula was done. The lens nucleus was phecoemulsified with CDE of 6.00. Residual cortical material was removed using automated I&A The capsular bag was deepened with viscoelastica and a PCIOL was placed in the capsular bag with good centration and stability. Residual viscoelastic was removed using automated I&A. The keratotomy incision was hydrated with BSS on a cannula. The wound were checked and found to be water tight. IOP was checked digitally and adjusted as needed so as not to be too high. 1 drop of timolol 0.5%, ofloxacin, prednisolone acetate and ketorolac was instilled and eye shield taped over the eye. The patient was taken to recovery in good condition and will be seen postoperatively.
== END 2023-10-12 08:19 | disposition home or self-care (01) ==
PROVIDERS: PCP Internal Medicine; Visit Provider Ophthalmology
DX: H25.812 Combined forms of age-related cataract, left eye (principal); H53.8 Other visual disturbances
CPT/HCPCS: 66984; V2632

== ENCOUNTER 2024-03-09 15:11 | Outpatient (CLI) | payer MEDICARE, SELFPAY ==
[2024-03-09 19:09] LABS: Basophils # 0.1 K/mm3 (0-0.2); Basophils % 1.2 % (0.1-2.0); Eosinophils # 0.3 K/mm3 (0.0-0.4); Eosinophils % 5.2 % (0.1-12.0); Hematocrit 43.2 % (37.0-47.0); Hemoglobin 14.5 g/dL (12.2-16.2); Lymphocytes # 2.1 K/mm3 (0.7-4.5); Mean Corpuscular HGB Conc 33.7 g/dL (31.8-35.4); Mean Corpuscular Hemoglobin 34.7 pg (27.0-31.2); Mean Corpuscular Volume 103.2 fl (81-99); Mean Platelet Volume 8.6 fl (7.4-10.4); Monocytes # 0.5 K/mm3 (0.1-1.0); Monocytes % 7.3 % (1.7-9.3); Neutrophils # 3.4 K/mm3 (1.8-7.8); Neutrophils % 53.3 % (37.0-80.0); Platelet Count 353 K/mm3 (142-424); Red Blood Count 4.19 M/mm3 (4.20-5.40); Red Cell Distribution Width 14.1 % (11.5-17.5); White Blood Count 6.4 K/mm3 (4.8-10.8)
[2024-03-09 19:33] LABS: Hemoglobin A1C 5.4 % (4.0-6.0)
[2024-03-09 19:53] LABS: Alanine Aminotransferase 21 U/L (12-78); Albumin Level 4.2 g/dl (3.5-5.0); Albumin/Globulin Ratio 1.4 (1.1-1.8); Alkaline Phosphatase 70 U/L (38-126); Anion Gap 10.1 mEq/L (5-15); Aspartate Amino Transferase 31 U/L (14-36); Bilirubin,Total 0.6 mg/dl (0.2-1.3); Blood Urea Nitrogen 14 mg/dl (7-17); Carbon Dioxide 25 mmol/L (22.0-30.0); Chloride 108 mmol/L (98-107); Chol/HDL Ratio 5.2 (1-3.5); Cholesterol 201 mg/dl (140-200); Estimated Glomerular Filt Rate 83 ml/min (>60); GFR (African American) 101 ML/MIN (>60); Glucose 81 mg/dl (74-100); HDL Cholesterol 39 mg/dl (40-60); Potassium 4.1 mmoL/L (3.5-5.1); Sodium 139 mmol/L (136-145); Total Protein,Serum 7.2 g/dl (6.3-8.2); Triglycerides 336 mg/dl (30-150); VLDL Cholesterol 67 mg/dL (0-40)
[2024-03-09 20:05] LABS: Direct LDL Cholesterol 116.65 mg/dL (100-129)
[2024-03-09 20:21] LABS: 25-OH Vitamin D, Total 39.1 ng/mL (30-100)
[2024-03-09 20:26] LABS: Thyroid Stimulating Hormone 3.48 uIU/mL (0.465-4.68)
== END 2024-03-09 23:59 | disposition home or self-care (01) ==
LOC: LAB.DROPOF 03-10 15:12
PROVIDERS: PCP Family Medicine; Visit Provider Family Medicine
DX: E55.9 Vitamin D deficiency, unspecified (principal); E03.9 Hypothyroidism, unspecified; E78.00 Pure hypercholesterolemia, unspecified; E11.9 Type 2 diabetes mellitus without complications
CPT/HCPCS: 80050; 80053; 80061; 82306; 83036; 84443; 85025

== ENCOUNTER 2024-06-06 08:28 | Outpatient (CLI) | payer MEDICARE, SELFPAY ==
--- NOTE | 2024-06-06 08:31 | MM_ITS ---
PROCEDURE INFORMATION: Exam: MG Bilateral Screening 3D Mammography Exam date and time: 06/06/2024 8:24 AM Age: 68 years old Clinical indication: Screening mammogram TECHNIQUE: Imaging protocol: Bilateral Screening tomosynthesis and 2D mammography including computer-aided detection (CAD) when performed. COMPARISON: 1. MG MM DIG SCREENING MAMM BI W/CAD 08/31/2022 3:38 PM 2. MG MM DIG SCREENING MAMM BI W/CAD 08/27/2021 3:38 PM 3. MG MM DIG SCREENING MAMM BI W/CAD 07/01/2020 9:13 AM 4. MG MM DIG SCREENING MAMM BI W/CAD 06/26/2019 4:37 PM FINDINGS: MAMMOGRAPHY: Breast composition: There are scattered areas of fibroglandular density. Mass: None. Architectural distortion: No new or suspicious architectural distortion. Calcifications: No new or suspicious calcifications are present Asymmetric density: No new or suspicious asymmetric density is present Skin thickening: None. Axillary adenopathy: None. IMPRESSION: No mammographic evidence of malignancy. Recommend annual screening mammography unless otherwise clinically indicated. ASSESSMENT: BI-RADS category 1: Negative.
== END 2024-06-06 23:59 | disposition home or self-care (01) ==
LOC: RAD 08:29
PROVIDERS: PCP Family Medicine; Visit Provider Internal Medicine
DX: Z12.31 Encounter for screening mammogram for malignant neoplasm of breast (principal)
CPT/HCPCS: 77063; 77067

== ENCOUNTER 2024-09-11 10:27 | Outpatient (CLI) | payer MEDICARE, SELFPAY ==
[2024-09-11 11:27] LABS: Blood Urea Nitrogen 14 mg/dl (7-17); Estimated Glomerular Filt Rate 83 ml/min (>60); GFR (African American) 101 ML/MIN (>60)
[2024-09-11 14:54] LABS: Microscopic, Urine URINE MICROSCOPIC (MICROSCOPIC)
[2024-09-11 21:15] LABS: Color,Urine Dark Yellow (Yellow)
[2024-09-11 21:16] LABS: Appearance,Urine Cloudy (Clear); Bilirubin,Urine Negative (Negative); Blood, Urine Trace (Negative); Glucose,Urine (UA) Negative (Negative); Ketones,Urine Negative (Negative); Leukocyte Esterase,Urine Trace (Negative); Nitrate,Urine Negative (Negative); PH,Urine 5.5 (5.0-8.5); Protein,Urine Negative (Negative); RBC,Urine Occasional #/hpf (0-3); Squamous Epithelial Cell,Urine 20-50 #/hpf (0-5); Urobilinogen,Urine 0.2 EU/dl (0.2); WBC,Urine 20-50 #/hpf (0-3)
[2024-09-11 21:17] LABS: Bacteria,Urine 4+ /lpf
== END 2024-09-11 23:59 | disposition home or self-care (01) ==
LOC: LAB 10:27
PROVIDERS: PCP Internal Medicine; Visit Provider Urology
DX: R31.9 Hematuria, unspecified (principal); N39.3 Stress incontinence (female) (male)
CPT/HCPCS: 36415; 81001; 82565; 84520; 87086

== ENCOUNTER 2024-09-15 08:29 | Outpatient (CLI) | payer MEDICARE, SELFPAY ==
--- NOTE | 2024-09-15 08:30 | CT_ITS ---
FINAL REPORT TECHNIQUE: Pre-and postcontrast axial CT images of the abdomen and pelvis were obtained. Hematuria protocol was utilized. Coronal reformatted images were also obtained and reviewed. This study was performed with techniques to keep radiation doses as low as reasonably achievable (ALARA). Individualized dose reduction techniques using automated exposure control or adjustment of mA and/or kV according to the patient''''s size were employed. CLINICAL HISTORY: Hematuria FINDINGS: CT OF THE ABDOMEN AND PELVIS WITH AND WITHOUT CONTRAST Abdomen: The lung bases are clear. The heart is normal in size. There is mild fatty infiltration of the liver. The gallbladder is surgically absent. The spleen is unremarkable. No adrenal mass is present. The pancreas has an unremarkable appearance. Precontrast images demonstrate no evidence of renal stone. There is a low-attenuation focus in the left kidney measuring 1.6 cm. This is well-seen on image 41 of series 5 and likely represents a benign cyst. No delayed images were obtained. The aorta is normal in caliber. There is no free fluid or adenopathy. Pelvis: The appendix is not well-visualized. The urinary bladder is decompressed. The GI tract demonstrates no obstruction. There is no pelvic mass or inflammation. There is no free fluid. There are mild to moderate changes of degenerative disc disease at L5-S1. IMPRESSION: No nephrolithiasis or hydronephrosis. Fatty liver. No acute intraabdominal or intrapelvic abnormalities. Reviewed, Interpreted and Dictated by Dionicio Bryant MD Transcribed by Catrachita Adler Authenticated and [facility]
[2024-09-15] MEDS: IOPAMIDOL-370 (76%);100ML BOTTLE 75 ML IV (09:00)
[2024-09-15] MEDS: SODIUM CHLORIDE 0.9% 10ML SYR (RAD ONLY) 10 ML IV (09:00)
== END 2024-09-15 23:59 | disposition home or self-care (01) ==
LOC: RAD 08:29
PROVIDERS: PCP Internal Medicine; Visit Provider Urology
DX: R31.9 Hematuria, unspecified (principal); N39.3 Stress incontinence (female) (male)
CPT/HCPCS: 74178; Q9967

== ENCOUNTER 2024-09-22 08:53 | Day surgery (SDC) | payer MEDICARE, SELFPAY ==
[2024-09-21 15:20] VITALS: BMI 30.5
[2024-09-22 09:03] VITALS: BP 146/58; PULSE 57; RESP 17; TEMP 36.1; O2SAT 93
[2024-09-22] MEDS: 0.9 % SODIUM CHLORIDE 500 ML 25 ML IV (09:31)
--- NOTE | 2024-09-22 09:33 | HMH.PROCNOTE ---
[facility] Procedure Note Date: 09/22/24 Time: 09:34 Procedure Note:: Chart review: The patient CT scan with and without infusion on 08/29 shows a left renal cyst. Patient is here for evaluation of hematuria. He is troubled with recurrent urinary tract infections. She has been on Gemtesa, oxybutynin, and Estrace. Both medications have efficacy. However at the present time Gemtesa she finds too expensive as her insurance has changed. She has applied for Gemtesa assistance. Preop diagnosis: Hematuria Postop diagnosis: Hematuria; urethritis Operative note: The patient was brought to the cystoscopy suite. A catheterized urine culture and sensitivity and complete urine analysis has been obtained. The patient underwent flexible cystoscopy. She has mild to moderate urethritis. The patient's bladder is [place] pink in color throughout without evidence of bladder stone tumor hemorrhage or infection. Her ureteral orifice ease are normal bilaterally with clear E flux of urine. She tolerated the procedure well.
[2024-09-22 09:34] VITALS: BP 126/58; PULSE 65; RESP 18; TEMP 36.6; O2SAT 99
[2024-09-22 13:39] LABS: Microscopic,Cath URINE MICROSCOPIC (MICROSCOPIC)
[2024-09-22 14:12] LABS: Appearance,Urine/Cath CLEAR (Clear); Bilirubin,Cath Negative (Negative); Blood, Urine/Cath SMALL (Negative); Color,Urine/Cath YELLOW (Yellow); Glucose,Urine/Cath (UA) Negative (Negative); Ketones,Urine/Cath Negative (Negative); Leukocyte Esterase,Cath TRACE (Negative); Nitrate,Cath Negative (Negative); PH,Urine/Cath 5.5 (5.0-8.5); Protein,Urine/Cath Negative (Negative); Specific Gravity, Urine/Cath >= 1.030 (1.005-1.030); Urobilinogen,Cath 0.2 EU/dl (0.2)
[2024-09-22 14:30] LABS: Bacteria,Urine/Cath TRACE /lpf
== END 2024-09-22 09:41 | disposition home or self-care (01) ==
PROVIDERS: PCP Internal Medicine; Visit Provider Urology
PROC: 0TJB8ZZ Inspection of Bladder, Via Natural or Artificial Opening Endoscopic (ICD-10-PCS; CPT 52000; principal; 2024-09-22 10:45)
DX: R31.9 Hematuria, unspecified (principal); N34.2 Other urethritis
CPT/HCPCS: 52000; 81001; 87086

== ENCOUNTER 2024-10-23 10:04 | Outpatient (CLI) | payer MEDICARE, SELFPAY ==
[2024-10-23 15:45] LABS: Microscopic, Urine URINE MICROSCOPIC (MICROSCOPIC)
[2024-10-23 16:15] LABS: Appearance,Urine CLEAR (Clear); Blood, Urine 1+ (Negative); Color,Urine YELLOW (Yellow); Glucose,Urine (UA) Negative (Negative); Ketones,Urine Negative (Negative); Leukocyte Esterase,Urine 2+ (Negative); Nitrate,Urine Negative (Negative); PH,Urine 5.5 (5.0-8.5); Protein,Urine Negative (Negative); Urobilinogen,Urine 0.2 EU/dl (0.2)
[2024-10-23 16:18] LABS: Specific Gravity, Urine 1.025 (1.005-1.030)
[2024-10-23 16:21] LABS: Bilirubin,Urine 1+ (Negative)
[2024-10-23 18:23] LABS: Bacteria,Urine 3+ /lpf
== END 2024-10-23 23:59 | disposition home or self-care (01) ==
LOC: LAB.DROPOF 10-24 14:06
PROVIDERS: PCP Urology; Visit Provider Urology
DX: R31.9 Hematuria, unspecified (principal)
CPT/HCPCS: 81001; 87086

== ENCOUNTER 2024-11-10 07:15 | Day surgery (SDC) | payer MEDICARE, SELFPAY ==
[2024-11-07 13:34] VITALS: BMI 30.5
--- NOTE | 2024-11-10 06:47 | P.HP_ITS ---
HPI HPI HPI: Patient is a 68-year-old female who I had previously seen for gallbladder disease and performed laparoscopic cholecystectomy in 2019. She also had undergone upper endoscopy. She presents for screening colonoscopy. She had prior colonoscopy on 11/17/[address] Orlando which revealed only diver ticulosis. [facility] Disclaimer: The information contained in this section may have been updated after the patient was seen, as this information can be updated by other users. Medical History (Updated 11/10/24 @ 08:15 by Brayan Stephens MD) Hypothyroid Hyperlipidemia Retraction of tympanic membrane of right ear Cellulitis and abscess of left lower extremity Right serous otitis media PADMINI (obstructive sleep apnea) Hiatal hernia with GERD Dysphagia Hypertension Depression Gastroesophageal reflux disease Surgical History H/O left breast biopsy H/O: hysterectomy Family History Other Heart disease Social History Smoking Status: Never smoker alcohol intake: never substance use type: denies use current occupational status: retired Travel in the last 8 weeks?: None household members: none housing: house current occupation: cook current occupational exposures/hazards: No caffeine: Yes Have you lived/traveled outside [place] in past 30 days?: No Contact w/someone who lives/traveled outside US past 30 days?: No Exposure to someone with infectious disease in past 14 days?: No Do you have a fever (greater than 100.4 F or 38 C)?: No Have you tested positive for COVID-19?: No Exposed to someone with COVID-19 in past 14 days?: No Do you have a sore throat?: No Do you have a cough?: No Do you have any weakness?: No Are you experiencing any nausea/vomitting?: No Do you have any diarrhea?: No Are you experiencing any unusual bleeding?: No Do you have any muscle aches/pain?: No Do you have any abdominal pain?: No Are you experiencing loss of taste or smell?: No Other Medical History Have you received the Flu Vaccine for this season: No Have you received the Pneumonia Vaccine: No Meds Home Medications and Allergies Home Medications ?Medication ?Instructions ?Recorded ?Confirmed ?Type amlodipine 5 mg tablet 5 mg PO DAILY 90 days #90 tabs 12/30/23 11/07/24 Rx atorvastatin 20 mg tablet 20 mg PO DAILY 90 days #90 tabs 12/30/23 11/07/24 Rx fluticasone propionate 50 1 spray intranasal QDAY #16 grams 12/30/23 11/07/24 Rx mcg/actuation nasal spray,suspension (Flonase Allergy Relief) lisinopril 20 1 tab PO DAILY 90 days #90 tabs 12/30/23 11/10/24 Rx mg-hydrochlorothiazide 12.5 mg tablet meloxicam 7.5 mg tablet 7.5 mg PO DAILY 90 days #90 tabs 12/30/23 11/07/24 Rx propranolol 160 mg capsule,24 160 mg PO DAILY 90 days #90 caps 12/30/23 11/07/24 Rx hr,extended release levothyroxine 125 mcg tablet See Rx Instructions .Route 07/07/24 11/07/24 Rx .COMPLEX #90 tabs omeprazole 40 mg capsule,delayed See Rx Instructions .Route 09/18/24 11/07/24 Rx release .COMPLEX #90 caps estradiol 0.01% (0.1 mg/gram) See Rx Instructions vaginal 10/23/24 11/07/24 Rx vaginal cream .COMPLEX #42.5 grams oxybutynin chloride 10 mg 10 mg PO DAILY 90 days #90 tabs 10/23/24 11/07/24 Rx tablet,extended release 24 hr sodium,potassium,mag sulfates 17.5 See Rx Instructions PO .COMPLEX 10/23/24 Rx gram-3.13 gram-1.6 gram oral soln #354 mL (Suprep Bowel Prep Kit) vibegron 75 mg tablet (Gemtesa) 75 mg PO DAILY 30 days #30 tabs 10/23/24 11/07/24 Rx desvenlafaxine succinate 50 mg See Rx Instructions .Route 11/08/24 Rx tablet,extended release 24 hr .COMPLEX #30 tabs New Prescriptions to Start Prescriptions: Allergies Allergy/AdvReac Type Severity Reaction Status Date / Time No Known Allergies Allergy Verified 11/07/24 13:26 Exam Data for Last 24 hours I & O for Last 24 hours: Intake & Output 11/07/24 11/08/24 11/09/24 11/10/24 11:59 11:59 11:59 11:59 Weight 178 lb Constitutional Constitutional: no acute distress *Routine HEENT Exam Head: Present normocephalic Eye: Present EOMI and PERRL ENT: Present mucous membranes moist *Routine Neck Exam Neck: Present supple; Absent lymphadenopathy *Routine Respiratory Exam Respiratory: Present CTA bilaterally *Routine Cardiovascular Exam Cardiovascular: Present RRR *Routine Abdominal Exam Abdominal: Present soft and normoactive bowel sounds; Absent tenderness *Routine Rectal Exam Rectal:: deferred *Routine Genitalia Exam Genitalia:: deferred *Routine Extremities Exam Extremities: Absent cyanosis, clubbing or edema *Routine Skin Exam Skin: Present warm; Absent rash *Routine Neurological Exam Neurological: Present alert and oriented X3 Assessment and Plan *Assessment and plan (1) Encounter for screening colonoscopy: Status: Acute Category: Medical Code(s): Z12.11 - Encounter for screening for malignant neoplasm of colon Plan Plan to proceed with colonoscopy
[2024-11-10 07:34] VITALS: BP 152/69; PULSE 63; RESP 17; TEMP 36.2; O2SAT 97
--- NOTE | 2024-11-10 07:55 | P.PNANES_ITS ---
[facility] Disclaimer: The information contained in this section may have been updated after the patient was seen, as this information can be updated by other users. Medical History Hypothyroid Hyperlipidemia Retraction of tympanic membrane of right ear Cellulitis and abscess of left lower extremity Right serous otitis media PADMINI (obstructive sleep apnea) Hiatal hernia with GERD Dysphagia Hypertension Depression Gastroesophageal reflux disease Surgical History H/O left breast biopsy H/O: hysterectomy Family History Other Heart disease Social History Smoking Status: Never smoker alcohol intake: never substance use type: denies use current occupational status: retired Travel in the last 8 weeks?: None household members: none housing: house current occupation: cook current occupational exposures/hazards: No caffeine: Yes Have you lived/traveled outside US in past 30 days?: No Contact w/someone who lives/traveled outside [place] past 30 days?: No Exposure to someone with infectious disease in past 14 days?: No Do you have a fever (greater than 100.4 F or 38 C)?: No Have you tested positive for COVID-19?: No Exposed to someone with COVID-19 in past 14 days?: No Do you have a sore throat?: No Do you have a cough?: No Do you have any weakness?: No Are you experiencing any nausea/vomitting?: No Do you have any diarrhea?: No Are you experiencing any unusual bleeding?: No Do you have any muscle aches/pain?: No Do you have any abdominal pain?: No Are you experiencing loss of taste or smell?: No [facility] Anesthesia Checklist Patient Identification Patient Identification: Arm Band and Verbal (Name & ) Structural Data Admitted From: Home Planned Operative Procedure/s: colonoscopy Consent for Planned Operative Procedure(s) Verified: Yes Verified Documents: Surgical Consent NPO Status Verified Time NPO: 00:00 Chart Verification Results Verified: None Additional verifications Anesthesia Reactions: No Hx Blood Transfusions: No Blood Transfusion Reaction: No Airway Assessment Mallampati Score:: Class II C-Spine Mobility Assessed: Yes TMJ Mobility Assessed: Yes Dentition: Good Dentition Neurological Assessment Level of Consciousness: Awake, Alert and Appropriate Hx Seizures: No Numbness or tingling in extremities: No Anesthesia Plan Anesthesia Risk discussed: Yes Anesthesia Plan: Verified ASA Class: II Anesthesia Type: MAC
[2024-11-10 08:22] VITALS: O2SAT 97
[2024-11-10 09:23] VITALS: BP 118/48; PULSE 64; RESP 16; TEMP 36.4; O2SAT 96
--- NOTE | 2024-11-10 09:23 | P.PCN_ITS ---
Procedure: Date: 11/10/24 Patient Date of :: 1955 Procedure Performed:: Total colonoscopy to terminal ileum with multiple polypectomy Indications:: Patient is a 68-year-old female who I had previously seen for gallbladder disease and performed laparoscopic cholecystectomy in 2019. She also had undergone upper endoscopy. She presents for screening colonoscopy. She had prior colonoscopy on 11/17/[address] Orlando which revealed only diverticulosis. Performing Provider:: Brayan Stephens MD Referring Provider:: Doni Hughes MD Sedation:: MAC sedation Procedure:: Patient history was obtained and appropriate physical examination was performed. Patient's medications and allergies were reviewed. Informed consent was obtained after explaining the benefits, alternatives, and risks of the procedure including, but not limited to, bleeding, perforation, missed lesions, and adverse reaction to anesthesia medications. Patient was transported to endoscopy procedure room. Patient was connected to monitoring devices. Throughout the procedure the patient's blood pressure, pulse, and oxygen saturations were monitored continuously. Patient identification and planned procedure were verified by the staff. Patient was positioned in lateral decubitus position. Digital anorectal exam was performed. Variable stiffness Olympus colonoscope was inserted and advanced under direct visualization to the cecum. Adequacy of the colonic preparation was noted. The colonoscope was advanced a short distance into the terminal ileum. The colonoscope was then slowly withdrawn while carefully exam ining the color, texture, anatomy, and integrity of the mucosoa circumferentially. Within the rectum retroflexion was performed. Colonoscope was then withdrawn. Impression: Within the cecum there was a tiny adenomatous appearing periappendiceal polyp removed with cold snare. Adjacent to this there was a moderate adenomatous polyp removed with cold snare in its entirety. In the cecum as a ridge polyp on the proximal side of the ridge adjacent to the ileocecal valve there was a moderately large adenomatous polyp. This required piecemeal removal in a prolonged fashion using the cold cutting snare. Ultimately some Karly view was injected submucosally. Additional polyp tissue was removed with cold cutting snare and biopsy forceps. Ultimately after prolonged polypectomy it appeared as though the polyp had been removed in its entirety. As the colonoscope was withdrawn through the remainder of the colon she had pandiverticulosis. There was a diminutive likely hyperplastic polyp in the descending colon removed with biopsy forceps. She had internal anal papillae. . Findings:: Cecal polyp x 3 as noted. Most notable was proximal ridge polyp adjacent to ileocecal valve requiring extremely prolonged complex polypectomy Diminutive likely hyperplastic descending colon polyp Pandiverticulosis Internal anal papillae Recommendations:: Repeat colonoscopy pending pathology. Likely 1 to 2 years to rule out early recurrence and assure complete removal of cecal polyp Complications:: None immediately apparent Estimated blood obtained (mL): 2 Colonoscopy Component Colonoscopy Component Was a colonoscopy performed during today's procedure?: Yes Recommended follow up colonoscopy of at least 10 years?: No If no, follow up colonoscopy recommended in ___ years?: See above Reason for not recommending >/= 10 yr follow-up interval?: See above
[2024-11-10 09:33] VITALS: BP 111/61; PULSE 66; RESP 16; O2SAT 97
[2024-11-10 09:43] VITALS: BP 114/69; PULSE 59; RESP 16; O2SAT 99
[2024-11-10 09:53] VITALS: BP 128/81; PULSE 60; RESP 16; O2SAT 98
== END 2024-11-10 10:00 | disposition home or self-care (01) ==
PROVIDERS: PCP Family Medicine; Visit Provider Surgery
PROC: 0DJD8ZZ Inspection of Lower Intestinal Tract, Via Natural or Artificial Opening Endoscopic (ICD-10-PCS; CPT 45378; principal; 2024-11-10 08:30)
DX: Z12.11 Encounter for screening for malignant neoplasm of colon (principal); K57.30 Diverticulosis of large intestine without perforation or abscess without bleeding; D12.0 Benign neoplasm of cecum; K63.5 Polyp of colon
CPT/HCPCS: 45380; 45381; 45385; 88305; J2003; J2704

== ENCOUNTER 2025-01-22 12:00 | Outpatient (CLI) | payer MEDICARE, SELFPAY ==
[2025-01-22 15:23] LABS: Microscopic, Urine URINE MICROSCOPIC (MICROSCOPIC)
[2025-01-22 15:48] LABS: Color,Urine YELLOW (Yellow); Glucose,Urine (UA) Negative (Negative); Ketones,Urine Negative (Negative); Leukocyte Esterase,Urine 2+ (Negative); PH,Urine 6.0 (5.0-8.5); Protein,Urine Negative (Negative); Specific Gravity, Urine 1.025 (1.005-1.030); Urobilinogen,Urine 0.2 EU/dl (0.2)
[2025-01-22 16:13] LABS: Bilirubin,Urine 1+ (Negative)
[2025-01-22 16:24] LABS: RBC,Urine Occasional #/hpf (0-3); Squamous Epithelial Cell,Urine Occasional #/hpf (0-5)
[2025-01-22 16:25] LABS: Bacteria,Urine 1+ /lpf
== END 2025-01-22 23:59 | disposition home or self-care (01) ==
LOC: LAB.DROPOF 01-23 12:11
PROVIDERS: PCP Urology; Visit Provider Urology
DX: R31.9 Hematuria, unspecified (principal)
CPT/HCPCS: 81001; 87086

== ENCOUNTER 2025-03-15 12:20 | Outpatient (CLI) | payer MEDICARE, SELFPAY ==
[2025-03-15 15:09] LABS: Chloride 104 mmol/L (98-107)
[2025-03-15 15:10] LABS: Albumin Level 4.7 g/dl (3.5-5.0); Potassium 4.5 mmoL/L (3.5-5.1); Sodium 140 mmol/L (136-145)
[2025-03-15 15:12] LABS: Blood Urea Nitrogen 17 mg/dl (7-17); Creatinine,Serum 0.70 mg/dl (0.52-1.04); Estimated Glomerular Filt Rate 83 ml/min (>60); GFR (African American) 101 ML/MIN (>60)
[2025-03-15 15:13] LABS: Alanine Aminotransferase 16 U/L (12-78); Albumin/Globulin Ratio 1.5 (1.1-1.8); Alkaline Phosphatase 80 U/L (38-126); Anion Gap 13.5 mEq/L (5-15); Aspartate Amino Transferase 29 U/L (14-36); Bilirubin,Total 0.9 mg/dl (0.2-1.3); Calcium 10.0 mg/dl (8.4-10.2); Carbon Dioxide 27 mmol/L (22.0-30.0); Cholesterol 204 mg/dl (140-200); Globulin 3.1 g/dL (1.3-3.2); Glucose 140 mg/dl (74-100); HDL Cholesterol 39 mg/dl (40-60); Total Protein,Serum 7.8 g/dl (6.3-8.2); Triglycerides 234 mg/dl (30-150)
[2025-03-15 15:30] LABS: Free T4 (Free Thyroxine) 1.66 ng/dl (0.78-2.19)
[2025-03-15 15:43] LABS: Thyroid Stimulating Hormone 9.36 uIU/mL (0.465-4.68)
== END 2025-03-15 23:59 ==
LOC: LAB.DROPOF 03-16 10:48
PROVIDERS: PCP Family Medicine; Visit Provider Family Medicine
DX: E03.9 Hypothyroidism, unspecified (principal); I10 Essential (primary) hypertension
CPT/HCPCS: 80053; 80061; 84439; 84443

== ENCOUNTER 2025-04-20 11:52 | Outpatient (CLI) | payer MEDICARE, SELFPAY ==
[2025-04-20 19:42] LABS: Cholesterol 189 mg/dl (140-200); HDL Cholesterol 42 mg/dl (40-60); Triglycerides 321 mg/dl (30-150)
[2025-04-20 20:14] LABS: Thyroid Stimulating Hormone 2.60 uIU/mL (0.465-4.68)
== END 2025-04-20 23:59 ==
LOC: LAB.DROPOF 04-23 11:53
PROVIDERS: PCP Family Medicine; Visit Provider Family Medicine
DX: E03.9 Hypothyroidism, unspecified (principal); E78.5 Hyperlipidemia, unspecified
CPT/HCPCS: 80061; 84443

== ENCOUNTER 2025-04-23 10:40 | Outpatient (CLI) | payer MEDICARE, SELFPAY ==
[2025-04-23 14:58] LABS: Microscopic, Urine URINE MICROSCOPIC (MICROSCOPIC)
[2025-04-23 16:09] LABS: Bilirubin,Urine Negative (Negative); Color,Urine YELLOW (Yellow); Glucose,Urine (UA) Negative (Negative); Ketones,Urine Negative (Negative); Leukocyte Esterase,Urine Negative (Negative); PH,Urine 6.0 (5.0-8.5); Protein,Urine Negative (Negative); Specific Gravity, Urine 1.025 (1.005-1.030); Urobilinogen,Urine 0.2 EU/dl (0.2)
[2025-04-23 16:25] LABS: Mucus,Urine 2+ /lpf
[2025-04-23 16:26] LABS: Bacteria,Urine 2+ /lpf
== END 2025-04-23 23:59 ==
LOC: LAB.DROPOF 04-25 10:42
PROVIDERS: PCP Family Medicine; Visit Provider Urology
DX: R31.9 Hematuria, unspecified (principal)
CPT/HCPCS: 81001; 87086

== ENCOUNTER 2025-05-10 09:45 | Outpatient (CLI) | payer MEDICARE, SELFPAY ==
--- OUTSIDE RECORDS SUMMARY | 2025-05-10 17:03 | XMS_ITS | Data Portability ---
Author Organization [facility] [place] Address [address] [place] [address] Assessment No assessment recorded. Plan of Treatment Reminders Order Date Submit Date Provider Last Modified By Organization Details Last Modified Time Details Appointments RECHECK 2024 02:35P M DONI FLEMING MD Not available Not available Not available Lab None recorded . Referral None recorded . Procedures None recorded . Surgeries None recorded . Imaging None recorded . Medication Orders None recorded . Patient TargetsNo targets recorded. Patient Instructions Encounter Date Encounter Id Patient Instructions Last Modified By Organization Details Last Modified Time 05/09/2025 [id number] Trigger Finger-LC [email or web address] Not availab le 05/09/2025 14:57:07 Reason for Referral None Reported. Results Created Date Observation Date Name Description Value Unit Range Abnormal Flag Note LastModifiedBy Organization Detail LastModifiedTime 03/10/20 22 03/03/2022 audio gram No observ ation record ed. BARCODE Not Available 2021 09:58:48 Result Notes None recorded. Problems No Known Problems Procedures Surgical History Date Name Laterality Status Provider Name and Address Organization Details Recorded Time 2 Tympanogram completed MERCEDES HUBBARD [address] [place], [address], [facility] 03/03/2022 13:59:07 2 Audiogram completed MATEO RUIZ AUD [address] [place], [address], [facility] 03/03/2022 13:59:04 Imaging Results None recorded. Procedure Notes None recorded. Medical Equipment None Reported. Allergies No known drug allergies Medications Name Sig Start Date Stop Date Status Note LastModified by Organization Details LastModified Time oxybutynin chloride ER 15 mg tablet,extended release 24 hr Take 1 tablet every day by oral route. active Not Available Not Available No t Available propranolol ER 160 mg capsule,24 hr,extended release Take 1 capsule every day by oral route. active Not Available Not Available No t Available atorvastatin 20 mg tablet Take 1 tablet every day by oral route. active Not Available Not Available No t Available lisinopril 20 mg tablet Take 1 tablet every day by oral route. active Not Available Not Available No t Available famotidine 40 mg tablet TAKE ONE TABLET BY MOUTH 2 TIMES A DAY active Not Available Not Available No t Available meloxicam 7.5 mg tablet Take 1 tablet every day by oral route. active Not Available Not Available No t Available estradiol 0.01% (0.1 mg/gram) vaginal cream Insert by vaginal route. active Not Available Not Available No t Available levothyroxine active Not Available Not Available Not Available omeprazole active Not Available Not Av ailable Not Available amlodipine active Not Available Not Av ailable Not Available desvenlafaxine ER 50 mg tablet,extended release 24 hr Take 1 tablet every day by oral route. active Not Available Not Available No t Available Gemtesa active Not Available Not Avail able Not Available Vitals Date Recorded Body height Body mass index (BMI) Body weight Provider Name and Address Organization Details Last Updated DateTime 05/09/2025 162.56 cm 30.6 kg/m2 96029.44 g Radhachapin Hernández [facility] 05/09/2025 14:26:37 Social History None recorded. Functional Status None recorded. Mental Status None recorded. Family History Nothing Reported. Medical History No medical history recorded. Gynecological HistoryNo gynecological history recorded. Obstetrics History GPAL:G 0 P 0 0 0 0 Past Encounters Encounter ID Performer Location Encounter Start Date Encounter Closed Date Diagnosis/Indication Diagnosis SNOMED-CT Code Diagnosis ICD10 Code Diagnosis IMO Codes Diagnosis Note [id number] MERCEDES HUBBARD [facility] [address] [place] [address] 03/03/2022 13:48:06 03/04/2022 08:22:23 Sensorineural hearing loss of bilateral ears 512570127 H90.3 Bilateral tinnitus 66144 50226 102 H93.13 Otalgia 62516446 H92.03 [id number] DONI FLEMING MD [facility] [address] [place] [address] 05/09/2025 14:05:19 05/09/2025 15:07:14 Acquired trigger finger 6534828 M65.30 63106 Left long and ring finger, symptomati c, early, no triggering . 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.0 157086 Advised to observe for now and treat when tabletop test is positive Health Concerns Section Related Observation LastModified by Organization Detai ls LastModified Time None Recorded Concern Status LastModified by Organization Details LastModified Time None Recorded Advance Directives Directive None Recorded Payers Insurance Date Sequence Insurance Name Policy Number Policy Clemons Covered Member ID Clemons Member ID Guarantor Name 05/09/2025 2 [employer] [facility] (MEDICAID HMO) Noelle Goodwinton [id number] Noelle Whitman Boyer 05/09/2025 1 [employer] (MEDICARE REPLACEMENT/ ADVANTAGE - PPO) Noelle Whitman Boyer [id number] Noelle Boyer 05/09/2025 1 [employer] (HMO) Noelle Goodwinton [id number] Noelle Boyer 05/09/2025 1 [employer] [facility] (MEDICAID HMO) Noelle Boyer [id number] Noelle Boyer Notes Date Note Type Note Provider Name and Address Organization Details Recorded Time 05/09/2025 text/html Consult requested by: Doni Hughes [facility] Physician: Doni Hughes MD Hand dominance: RightLocation: Bilateral Hand L>R Average Pain level: 7 /10 -in lt hand Time Since Onset/Injury: ~6 months Recent upper extremity Surgery: NoProcedure:Date of surgery:Duration: Recent Major surgeryN/AProcedure :Date of surgery:Surgeon: In office procedure? No Previous upper extremity surgery? NoProcedure:Approxi mate date of surgery:Surgeon (if known): Have you or any of your immediate family members been seen by our hand surgeons before? No Employment Status: retired Patient arrived in: N/A Left In Place? N/A Taken Off? N/A N/A Licensed Psychologist Strength: New: Ms. Boyer is here regarding nodules in the palm of [place]wyn hands. L>R. Pt states she noticed them ~6 months ago, and they have progressively gotten worse/bigger. She states the lt hand is especially painful, especially when gripping/putting pressure on the hand. DONI FLEMING MD [address] [place], [address], [facility] 05/09/2025 14:57:24 OBGyn Episode No OBEpisode recorded.
--- OUTSIDE RECORDS SUMMARY | 2025-05-10 17:04 | XMS_ITS | Continuity of Care Document ---
Author Organization [facility], ORTHOPEDICS [address] [place] [address] Assessment No assessment recorded. Plan of Treatment [...] By Organization Details Last Modified Time 05/09/2025 [id number] Trigger Finger-LC [email or web address] Not availab le 05/09/2025 14:57:07 Reason for Referral None Reported. Problems No Known Problems Procedures Surgical History Date Name Laterality Status Provider Name and Address Organization Details Recorded Time 2 Tympanogram completed MERCEDES HUBBARD [address] [place], [address], [facility] 03/03/2022 13:59:07 2 Audiogram completed MERCEDES HUBBARD [address] [place], [address], [facility] 03/03/2022 13:59:04 Imaging Results None recorded. Procedure [...] Updated DateTime 05/09/2025 162.56 cm 30.6 kg/m2 77086.44 g Radha Hernández [facility] 05/09/2025 14:26:37 Social History None recorded. Functional Status None recorded. Mental Status None recorded. Family History Nothing Reported. Medical History No medical history recorded. Gynecological HistoryNo gynecological history recorded. Obstetrics History GPAL:G 0 P 0 0 0 0 Past Encounters Encounter ID Performer Location Encounter Start Date Encounter Closed Date Diagnosis/Indication Diagnosis SNOMED-CT Code Diagnosis ICD10 Code Diagnosis IMO Codes Diagnosis Note [id number] DONI FLEMING MD [facility] [address] [place] [address] 05/09/2025 14:05:19 05/09/2025 15:07:14 Acquired trigger finger 8352807 M65.30 92767 Left long and ring finger, symptomati c, early, no triggering . Advised hand therapy Musculoske letal fibromatosis 135388462 M72.0 338663 Advised to observe for now and treat when tabletop test is positive Health Concerns Section Related Observation LastModified by Organization Detai ls LastModified Time None Recorded Concern Status LastModified by Organization Details LastModified Time None Recorded Payers Encounter Date Sequence Insurance Name Policy Number Policy Clemons Covered Member ID Clemons Member ID Guarantor Name 05/09/2025 1 [employer] (MEDICARE REPLACEMENT/A DVANTAGE - PPO) Noelle Boyer [id number] Noelle Boyer Notes Date Note Type Note Provider Name and Address Organization Details Recorded Time 05/09/2025 text/html Consult requested by: Doni Hughes [facility] Physician: Doni Hughes MD Hand dominance: RightLocation: [...] In Place? N/A Taken Off? N/A N/A Chemistry Associate Strength: New: Ms. Boyer is here regarding nodules in the palm of [place]wyn hands. L>R. Pt states she noticed them ~6 months ago, and they have progressively gotten worse/bigger. She states the lt hand is especially painful, especially when gripping/putting pressure on the hand. DONI FLEMING MD [address] [place] [address], [address], [facility] 05/09/2025 14:57:24 OBGyn Episode No OBEpisode recorded.
== END 2025-05-10 23:59 | disposition home or self-care (01) ==
LOC: LAB.DROPOF 17:02
PROVIDERS: PCP Family Medicine; Visit Provider Nurse Practitioner
DX: B35.1 Tinea unguium (principal)
CPT/HCPCS: 87220